=== PATIENT | female | born 1980 | race African-American/Black ===

== ENCOUNTER 2020-04-27 18:22 | Inpatient (IN) | payer MEDICAID ==
[~2020-04-27] VITALS: Ht 175.3 cm; Wt 96.2 kg
[~2020-04-27 18:22] MED LIST: CIPROFLOXACIN500 M2 ORAL; PHENAZOPYRIDIN200 MG ORAL
[2020-04-27 18:55] VITALS: BP 124/72
[2020-04-27] MEDS ORDERED: Omnipaque-300 100ml vial INJ PRN (19:15)
--- NOTE | 2020-04-27 19:15 | Emergency Room Report ---
History of Present Illness General Chief Complaint: Abdominal Pain Source: Patient Present Illness HPI Disclaimer: Please note that this report is being documented using [employer] technology. This can lead to erroneous entry secondary to incorrect interpretation by the dictating instrument. HPI: 39-year-old female presents for evaluation of abdominal distention. Patient had a "tummy tuck" in [facility] 14 days ago and had a drain put in which she states has decreased output. She is complaining of increased abdominal distention. She finished her Keflex and her last heparin shot 4 days ago. Notes nausea but no vomiting. Denies fever. Denies diarrhea. Continues to pass gas. Denies wound dehiscence, purulent drainage, bleeding. 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 EOMI. Cardiovascular: Tachycardic. S1 and S2 normal. No murmur appreciated Resp: Normal work of breathing. No cough, wheezing or crackles appreciated Abdomen: Abdomen is soft, somewhat distended. No focal tenderness but generally tender. No rebound Skin: 50 cm linear surgical scar across the lower pelvis clean dry and intact. Drain in the right lower quadrant with serosanguineous drainage into the reservoir. No bleeding. No dehiscence, no purulent drainage, no significant edema or erythema or warmth. MSK: Normal tone and bulk. Moving all extremities. No obvious deformity. Neuro: Awake and alert. Mentating appropriately. Procedures Critical Care Time Critical Care Time Total critical care time: Approximately 45 minutes Due to a high probability of clinically significant, life threatening deterioration, the patient required the highest level of preparedness to intervene emergently and I personally spent this critical care time directly and personally managing the patient. This critical care time included obtaining a history, examining the patient, pulse oximetry, ordering and reviewing studies, ordering treatments, evaluating response to treatment and updating management plan as needed, frequent reassessment and discussion with other providers as well as arranging for ultimate disposition. This critical to care time was performed to assess and manage the high probability of life-threatening deterioration that could result in multiorgan failure. This critical care time is separate from the separately billable procedures and treating other patients. Medical Decision Making Diagnostic Impression: Primary Impression: Post-op pain Additional Impression: Postoperative anemia ER Course Is a 39-year-old female presenting for evaluation of abdominal pain 14 days postop of tummy tuck procedure performed in [facility]. Patient finished course of antibiotics but concerned the drain is no longer working. Appears to be draining though abdomen does seem somewhat tender. CT shows soft tissue edema from prior surgical changes as well as fluid and gas throughout the subcu fat but no loculated fluid collections, abscess or other abnormalities noted. Patient was found to be anemic and will require transfusion. Admitted to panel physician, Dr. Johnson Laboratory Tests Test 04/27/20 13:05 04/27/20 19:25 Urine Color Yellow Urine Appearance Slightly cloudy Urine pH 5 (4.5-8.0) Urine Specific [place] 1.020 (1.005-1.035) Urine Protein 1+ (NEGATIVE) H Urine Glucose (UA) Negative (NEGATIVE) Urine Ketones Negative (NEGATIVE) Urine Blood 5+ (NEGATIVE) H Urine Nitrite Positive (NEGATIVE) H Urine Bilirubin Negative (NEGATIVE) Urine Urobilinogen Normal MG/DL (0.0-1.0) Urine Leukocyte Esterase 1+ (NEGATIVE) H Urine RBC 10-15 /HPF (0 - 2) H Urine WBC 15-20 /HPF (0 - 2) H Urine Squamous Epithelial Cells Many /LPF (NONE/OCC) H Urine Bacteria Many /HPF (NONE) H Urine HCG, Qualitative Negative (NEGATIVE) White Blood Count 13.3 K/UL (4.8-10.8) H Red Blood Count 2.33 M/UL (4.20-5.40) L Hemoglobin 7.2 G/DL (12.0-16.0) L Hematocrit 21.0 % (37.0-47.0) L Mean Corpuscular Volume 91 FL (80-99) Mean Corpuscular Hemoglobin 30.9 PG (27.0-31.0) Mean Corpuscular Hemoglobin Concent 34.1 G/DL (32.0-36.0) Red Cell Distribution Width 17.9 % (11.6-14.8) H Platelet Count 265 K/UL (150-450) Mean Platelet Volume 5.7 FL (6.5-10.1) L Neutrophils (%) (Auto) % (45.0-75.0) Lymphocytes (%) (Auto) % (20.0-45.0) Monocytes (%) (Auto) % (1.0-10.0) Eosinophils (%) (Auto) % (0.0-3.0) Basophils (%) (Auto) % (0.0-2.0) Differential Total Cells Counted 100 Neutrophils % (Manual) 82 % (45-75) H Lymphocytes % (Manual) 14 % (20-45) L Monocytes % (Manual) 4 % (1-10) Eosinophils % (Manual) 1 % (0-3) Basophils % (Manual) 0 % (0-2) Band Neutrophils 3 % (0-8) Platelet Estimate Adequate Platelet Morphology Normal Hypochromasia 2+ Anisocytosis 2+ Prothrombin Time 11.0 SEC (9.30-11.50) Prothrombin Time INR 1.0 (0.9-1.1) Activated Partial Thromboplast Time 21 SEC (23-33) L Sodium Level 139 MMOL/L (136-145) Potassium Level 4.2 MMOL/L (3.5-5.1) Chloride Level 105 MMOL/L (98-107) Carbon Dioxide Level 28 MMOL/L (21-32) Anion Gap 6 mmol/L (5-15) Blood Urea Nitrogen 10 mg/dL (7-18) Creatinine 1.1 MG/DL (0.55-1.30) Estimated Glomerular Filtration Rate > 60 mL/min (>60) Glucose Level 132 MG/DL (74-106) H Calcium Level 7.7 MG/DL (8.5-10.1) L Total Bilirubin 0.5 MG/DL (0.2-1.0) Aspartate Amino Transferase (AST) 28 U/L (15-37) Alanine Aminotransferase (ALT) 20 U/L (12-78) Alkaline Phosphatase 74 U/L (46-116) Total Protein 5.8 G/DL (6.4-8.2) L Albumin 2.4 G/DL (3.4-5.0) L Globulin 3.4 g/dL Albumin/Globulin Ratio 0.7 (1.0-2.7) L Lipase 86 U/L (73-393) CT/MRI/US Diagnostic Results CT/MRI/US Diagnostic Results : Impression IMPRESSION: Extensive soft tissue findings from recent surgical procedure with multiple superficial drainage catheters. Fluid and gas throughout the subcutaneous fat region abdomen and pelvis. No loculated fluid collections identified. Indeterminate irregular uterine masses. Dictated By: Chintan Delgadillo DO Electronically Signed By:Chintan Delgadillo DO Signed Date/Time 04/27/202158 Last Vital Signs Date Time Temp Pulse Resp B/P (MAP) Pulse Ox O2 Delivery O2 Flow Rate FiO2 04/27/20 18:55 99.3 20 124/72 95 Room Air 04/27/20 18:55 110 Disposition: ADMITTED INPATIENT Condition: Serious Referrals: NOT CHOSEN IPA/,REFERRING (PCP) David Pickett MD Apr 27, 2020 19:15
[2020-04-27 20:08] LABS: HEMOGLOBIN 7.2 G/DL (12.0-16.0); MEAN CORPUSCULAR VOLUME 91 FL (80-99); PLATELET COUNT 265 K/UL (150-450); RED BLOOD COUNT 2.33 M/UL (4.20-5.40); RED CELL DISTRIBUTION WIDTH 17.9 % (11.6-14.8); WHITE BLOOD COUNT 13.3 K/UL (4.8-10.8)
[2020-04-27 20:18] LABS: ANION GAP 6 mmol/L (5-15); BLOOD UREA NITROGEN 10 mg/dL (7-18); CALCIUM 7.7 MG/DL (8.5-10.1); CARBON DIOXIDE 28 MMOL/L (21-32); CHLORIDE 105 MMOL/L (98-107); CREATININE 1.1 MG/DL (0.55-1.30); POTASSIUM 4.2 MMOL/L (3.5-5.1); SODIUM 139 MMOL/L (136-145)
[2020-04-27 20:19] LABS: BILIRUBIN, URINE NEGATIVE (NEGATIVE); GLUCOSE, URINE (UA) NEGATIVE (NEGATIVE); KETONES,URINE NEGATIVE (NEGATIVE); LEUKOCYTE ESTERASE ,URINE 1+ (NEGATIVE); NITRITE,URINE POSITIVE (NEGATIVE); PH,URINE 5 (4.5-8.0); PROTEIN,URINE 1+ (NEGATIVE); UROBILINOGEN,URINE NORMAL MG/DL (0.0-1.0)
[2020-04-27 20:20] LABS: APPEARANCE,URINE SLIGHTLY CLOUDY; COLOR,URINE YELLOW
[2020-04-27 20:23] LABS: ALANINE AMINOTRANSFERASE 20 U/L (12-78); ALBUMIN 2.4 G/DL (3.4-5.0); ALBUMIN/GLOBULIN RATIO 0.7 (1.0-2.7); ALKALINE PHOSPHATASE 74 U/L (46-116); ASPARTATE AMINO TRANSFERASE 28 U/L (15-37); BILIRUBIN,TOTAL 0.5 MG/DL (0.2-1.0)
--- NOTE | 2020-04-27 22:00 | Diagnostic Imaging Report ---
EXAM: CT Abdomen and Pelvis With Intravenous Contrast CLINICAL HISTORY: ABD PAIN TECHNIQUE: Axial computed tomography images of the abdomen and pelvis with intravenous contrast. CTDI is 10.30 mGy and DLP is 550.90 mGy-cm. One or more of the following dose reduction techniques were used: automated exposure control, adjustment of the mA and/or kV according to patient size, use of iterative reconstruction technique. COMPARISON: No relevant prior studies available. FINDINGS: Artifacts: Moderate streak artifact related to spinal rods. Lung bases: Unremarkable. No mass. No consolidation. ABDOMEN: Liver: Unremarkable. No mass. Gallbladder and bile ducts: The gallbladder is contracted. No calcified stones. No ductal dilation. Pancreas: Unremarkable. No mass. No ductal dilation. Spleen: Unremarkable. No splenomegaly. Adrenals: Unremarkable. No mass. Kidneys and ureters: Nonobstructing right intrarenal calculus. Stomach and bowel: Unremarkable. No obstruction. No mucosal thickening. PELVIS: Appendix: No findings to suggest acute appendicitis. Bladder: Unremarkable. No mass. Reproductive: Indeterminate at irregular uterine masses. ABDOMEN and PELVIS: Intraperitoneal space: Unremarkable. No free air. No significant fluid collection. Bones/joints: No acute fracture. No dislocation. Soft tissues: Bilateral subcutaneous drainage catheters in a patient recently status post plastic surgery. Soft tissue gas throughout the subcutaneous fat abdomen and pelvis. Fluid attenuation and most prominent in the dependent portions near the posterior drainage catheters. No loculated fluid collections identified. Vasculature: Unremarkable. No abdominal aortic aneurysm. Lymph nodes: Unremarkable. No enlarged lymph nodes. IMPRESSION: Extensive soft tissue findings from recent surgical procedure with multiple superficial drainage catheters. Fluid and gas throughout the subcutaneous fat region abdomen and pelvis. No loculated fluid collections identified. Indeterminate irregular uterine masses.
[2020-04-27] MEDS ORDERED: cefTRIAXone 1 GM in NS 55 ML IVPB ONE (22:30)
[2020-04-27] MEDS ORDERED: LORazepam Inj 2mg/ml 1ml IV PRN (23:45)
[2020-04-27] MEDS ORDERED: Morphine Sulfate 2mg/ml Inj(IV/IM USE ONLY) IVP PRN (23:45)
[2020-04-28] VITALS (8 sets, daily range): BP systolic 112–138; BP diastolic 70–83
[2020-04-28] MEDS ORDERED: cefTRIAXone 2 GM in NS 55 ML IVPB ONE ×2
[2020-04-28 06:33] LABS: BASOPHILS % (AUTO) 1.2 % (0.0-2.0); EOSINOPHILS % (AUTO) 1.6 % (0.0-3.0); HEMATOCRIT 26.7 % (37.0-47.0); HEMOGLOBIN 8.8 G/DL (12.0-16.0); LYMPHOCYTES % (AUTO) 10.6 % (20.0-45.0); MEAN CORPUSCULAR VOLUME 94 FL (80-99); MONOCYTES % (AUTO) 6.1 % (1.0-10.0); NEUTROPHILS % (AUTO) 80.5 % (45.0-75.0); PLATELET COUNT 313 K/UL (150-450); RED BLOOD COUNT 2.83 M/UL (4.20-5.40); RED CELL DISTRIBUTION WIDTH 15.9 % (11.6-14.8)
[2020-04-28 07:01] LABS: % IRON SATURATION 32 % (15-50); IRON 69 ug/dL (50-175); TOTAL IRON BINDING CAPACITY 218 ug/dL (250-450)
[2020-04-28 07:10] LABS: ALANINE AMINOTRANSFERASE 20 U/L (12-78); ALBUMIN 2.4 G/DL (3.4-5.0); ALBUMIN/GLOBULIN RATIO 0.8 (1.0-2.7); ALKALINE PHOSPHATASE 68 U/L (46-116); ANION GAP 4 mmol/L (5-15); ASPARTATE AMINO TRANSFERASE 17 U/L (15-37); BILIRUBIN,TOTAL 0.9 MG/DL (0.2-1.0); BLOOD UREA NITROGEN 8 mg/dL (7-18); CALCIUM 7.7 MG/DL (8.5-10.1); CARBON DIOXIDE 27 MMOL/L (21-32); CHLORIDE 108 MMOL/L (98-107); CREATININE 0.9 MG/DL (0.55-1.30); POTASSIUM 3.7 MMOL/L (3.5-5.1); SODIUM 139 MMOL/L (136-145)
--- NOTE | 2020-04-28 08:05 | History & Physical ---
History and Physical History & Physicial Seen and examined. Full Dictation completed. Rochelle Johnson MD Apr 28, 2020 08:05
--- NOTE | 2020-04-28 08:06 | General Progress Note ---
Subjective Allergies: Coded Allergies: No Known Allergies (Unverified , 12/03/19) Objective Last 24 Hour Vital Signs Date Time Temp Pulse Resp B/P (MAP) Pulse Ox O2 Delivery O2 Flow Rate FiO2 04/28/20 06:22 99.0 100 18 122/78 100 Room Air 04/28/20 03:20 98.8 98 18 136/81 100 Room Air 04/28/20 00:15 99.0 105 18 138/83 100 Room Air 04/27/20 18:55 99.3 20 124/72 95 Room Air 04/27/20 18:55 110 20 Room Air 04/27/20 18:26 99.3 110 20 124/72 (89) 95 Room Air Intake and Output 04/27/20 04/28/20 19:00 07:00 Intake Total 55 ml Balance 55 ml Intake IV Total 55 ml Laboratory Tests 04/27/20 13:05: Urine Color Yellow, Urine Appearance Slightly cloudy, Urine pH 5, Urine Specific [place] 1.020, Urine Protein 1+H, Urine Glucose (UA) Negative, Urine Ketones Negative, Urine Blood 5+H, Urine Nitrite PositiveH, Urine Bilirubin Negative, Urine Urobilinogen Normal, Urine Leukocyte Esterase 1+H, Urine RBC 10-15H, Urine WBC 15-20H, Urine Squamous Epithelial Cells ManyH, Urine Bacteria ManyH, Urine HCG, Qualitative Negative 04/27/20 19:25: White Blood Count 13.3H, Red Blood Count 2.33L, Hemoglobin 7.2L, Hematocrit 21.0L, Mean Corpuscular Volume 91, Mean Corpuscular Hemoglobin 30.9, Mean Corpuscular Hemoglobin Concent 34.1, Red Cell Distribution Width 17.9H, Platelet Count 265, Mean Platelet Volume 5.7L, Neutrophils (%) (Auto) , Lymphocytes (%) (Auto) , Monocytes (%) (Auto) , Eosinophils (%) (Auto) , Basophils (%) (Auto) , Differential Total Cells Counted 100, Neutrophils % (Manual) 82H, Lymphocytes % (Manual) 14L, Monocytes % (Manual) 4, Eosinophils % (Manual) 1, Basophils % (Manual) 0, Band Neutrophils 3, Platelet Estimate Adequate, Platelet Morphology Normal, Hypochromasia 2+, Anisocytosis 2+, Prothrombin Time 11.0, Prothromb Time International Ratio 1.0, Activated Partial Thromboplast Time 21L, Sodium Level 139, Potassium Level 4.2, Chloride Level 105, Carbon Dioxide Level 28, Anion Gap 6, Blood Urea Nitrogen 10, Creatinine 1.1, Estimat Glomerular Filtration Rate > 60, Glucose Level 132H, Calcium Level 7.7L, Total Bilirubin 0.5, Aspartate Amino Transf (AST/SGOT) 28, Alanine Aminotransferase (ALT/SGPT) 20, Alkaline Phosphatase 74, Total Protein 5.8L, Albumin 2.4L, Globulin 3.4, Albumin/Globulin Ratio 0.7L, Lipase 86 04/28/20 05:35: White Blood Count 13.0H, Red Blood Count 2.83L, Hemoglobin 8.8L, Hematocrit 26.7L, Mean Corpuscular Volume 94, Mean Corpuscular Hemoglobin 31.3H, Mean Corpuscular Hemoglobin Concent 33.1, Red Cell Distribution Width 15.9H, Platelet Count 313, Mean Platelet Volume 5.4L, Neutrophils (%) (Auto) 80.5H, Lymphocytes (%) (Auto) 10.6L, Monocytes (%) (Auto) 6.1, Eosinophils (%) (Auto) 1.6, Basophils (%) (Auto) 1.2, Sodium Level 139, Potassium Level 3.7, Chloride Level 108H, Carbon Dioxide Level 27, Anion Gap 4L, Blood Urea Nitrogen 8, Creatinine 0.9, Estimat Glomerular Filtration Rate > 60, Glucose Level 104, Calcium Level 7.7L, Total Bilirubin 0.9, Aspartate Amino Transf (AST/SGOT) 17, Alanine Aminotransferase (ALT/SGPT) 20, Alkaline Phosphatase 68, Total Protein 5.6L, Albumin 2.4L, Globulin 3.2, Albumin/Globulin Ratio 0.8L, Hemoglobin A1c 5.7, Iron Level 69, Total Iron Binding Capacity 218L, Percent Iron Saturation 32, Unsaturated Iron Binding 149, Thyroid Stimulating Hormone (TSH) 1.584 Height (Feet): 5 Height (Inches): 9.00 Weight (Pounds): 212 Assessment/Plan Assessment/Plan: Dictation in progress A/P: 1- Sepsis 2- Acute Anemia Plan: current antibiotic regiment ID, Surgery services are consulted Rochelle Johnson MD Apr 28, 2020 08:06
[2020-04-28] MEDS: Enoxaparin 40mg Inj SUBQ SCH (09:19)
[2020-04-28] MEDS ORDERED: Piperacillin/Tazobactam 3.375 GM in NS 110 ML IVPB ONE (11:00)
[2020-04-28] MEDS ORDERED: Vancomycin 1.5gm x1 (Pts>70kg) IVPB SCH (11:15)
--- NOTE | 2020-04-28 12:30 | Consultation ---
History of Present Illness General Date patient seen: Apr 28, 2020 Reason for Hospitalization: Abdominal Pain Present Illness HPI This is a very pleasant 39-year-old female presents for evaluation of abdominal distention and fluid retention for the past few days. States that she had a "tummy tuck" in [facility] 14 days ago and had a drain put in which she states has decreased output. She is complaining of increased abdominal distention. She finished her Keflex and her last heparin shot 4 days ago. Notes nausea but no vomiting. Denies fever. Denies diarrhea. Continues to pass gas. Denies wound dehiscence, purulent drainage, bleeding. Surgery called to evaluate assist with care. Patient seen, [place], chart reviewed. 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 Came in for evaluation. Imaging reviewed Allergies: Coded Allergies: No Known Allergies (Unverified , 12/03/19) COVID-19 Screening Contact w/high risk pt: No Experienced COVID-19 symptoms?: No Coronavirus symptoms experienc: Nausea/Vomiting Medication History Discontinued Medications Ciprofloxacin Hcl* (Ciprofloxacin Hcl*), 500 MG ORAL Q12H Discontinued Reason: Therapy completed Phenazopyridine Hcl* (Pyridium*), 200 MG ORAL THREE TIMES A DAY Discontinued Reason: Therapy completed Patient History History Provided By: Patient Healthcare decision maker Resuscitation status Advanced Directive on File Past Medical/Surgical History Past Medical/Surgical History: (1) Abdominal pain (2) Post-op pain (3) Postoperative anemia Review of Systems Review of Symptoms General ROS: no weight loss or fever Psychological ROS: no depression or mood changes, no memory loss Ophthalmic ROS: no visual changes or eye irritation ENT ROS: no nasal congestion, hearing loss, dizziness Allergy and Immunology ROS: no allergic symptoms or urticaria Hematological and Lymphatic ROS: no swollen glands, unusual bleeding or bruising Endocrine ROS: no polyuria, polydipsia, weight changes, temperature intolerance Respiratory ROS: no cough, shortness of breath, or wheezing Cardiovascular ROS: no chest pain or dyspnea on exertion Gastrointestinal ROS: denies abdominal pain, bright red blood in stool. Musculoskeletal ROS: no myalgias or arthralgias Neurological ROS: no TIA or stroke symptoms Dermatological ROS: no new or changing skin lesions, rashes or pruritis Physical Exam Physical Exam General appearance: alert, cooperative, no distress, appears stated age Head: Normocephalic, without obvious abnormality, atraumatic Eyes: conjunctivae/corneas clear. PERRL, EOM's intact. Fundi benign Throat: Lips, mucosa, and tongue normal. Teeth and gums normal Neck: supple, symmetrical, trachea midline, no adenopathy, thyroid: not enlarged, symmetric, no tenderness/mass/nodules, no carotid bruit and no JVD Lungs: clear to auscultation bilaterally Heart: regular rate and rhythm, S1, S2 normal, no murmur, click, rub or gallop Abdomen: soft, non-tender. Bowel sounds normal. No masses, no organomegaly right lower quadrant Hemovac drain serous drainage anasarca abdominoplasty incision clean dry intact Extremities: extremities normal, atraumatic, no cyanosis or edema Pulses: 2+ and symmetric Skin: Skin color, texture, turgor normal. No rashes or lesions Neurologic: Grossly normal Last 24 Hour Vital Signs Date Time Temp Pulse Resp B/P (MAP) Pulse Ox O2 Delivery O2 Flow Rate FiO2 04/28/20 09:00 99.0 99 17 127/75 98 Room Air 04/28/20 06:22 99.0 100 18 122/78 100 Room Air 04/28/20 03:20 98.8 98 18 136/81 100 Room Air 04/28/20 00:15 99.0 105 18 138/83 100 Room Air 04/27/20 18:55 99.3 20 124/72 95 Room Air 04/27/20 18:55 110 20 Room Air 04/27/20 18:26 99.3 110 20 124/72 (89) 95 Room Air Intake and Output 04/27/20 04/28/20 19:00 07:00 Intake Total 55 ml Balance 55 ml Intake IV Total 55 ml Laboratory Tests Test 04/27/20 13:05 04/27/20 19:25 04/28/20 05:35 Urine Color Yellow Urine Appearance Slightly cloudy Urine pH 5 (4.5-8.0) Urine Specific [place] 1.020 (1.005-1.035) Urine Protein 1+ (NEGATIVE) H Urine Glucose (UA) Negative (NEGATIVE) Urine Ketones Negative (NEGATIVE) Urine Blood 5+ (NEGATIVE) H Urine Nitrite Positive (NEGATIVE) H Urine Bilirubin Negative (NEGATIVE) Urine Urobilinogen Normal MG/DL (0.0-1.0) Urine Leukocyte Esterase 1+ (NEGATIVE) H Urine RBC 10-15 /HPF (0 - 2) H Urine WBC 15-20 /HPF (0 - 2) H Urine Squamous Epithelial Cells Many /LPF (NONE/OCC) H Urine Bacteria Many /HPF (NONE) H Urine HCG, Qualitative Negative (NEGATIVE) White Blood Count 13.3 K/UL (4.8-10.8) H 13.0 K/UL (4.8-10.8) H Red Blood Count 2.33 M/UL (4.20-5.40) L 2.83 M/UL (4.20-5.40) L Hemoglobin 7.2 G/DL (12.0-16.0) L 8.8 G/DL (12.0-16.0) L Hematocrit 21.0 % (37.0-47.0) L 26.7 % (37.0-47.0) L Mean Corpuscular Volume 91 FL (80-99) 94 FL (80-99) Mean Corpuscular Hemoglobin 30.9 PG (27.0-31.0) 31.3 PG (27.0-31.0) H Mean Corpuscular Hemoglobin Concent 34.1 G/DL (32.0-36.0) 33.1 G/DL (32.0-36.0) Red Cell Distribution Width 17.9 % (11.6-14.8) H 15.9 % (11.6-14.8) H Platelet Count 265 K/UL (150-450) 313 K/UL (150-450) Mean Platelet Volume 5.7 FL (6.5-10.1) L 5.4 FL (6.5-10.1) L Neutrophils (%) (Auto) % (45.0-75.0) 80.5 % (45.0-75.0) H Lymphocytes (%) (Auto) % (20.0-45.0) 10.6 % (20.0-45.0) L Monocytes (%) (Auto) % (1.0-10.0) 6.1 % (1.0-10.0) Eosinophils (%) (Auto) % (0.0-3.0) 1.6 % (0.0-3.0) Basophils (%) (Auto) % (0.0-2.0) 1.2 % (0.0-2.0) Differential Total Cells Counted 100 Neutrophils % (Manual) 82 % (45-75) H Lymphocytes % (Manual) 14 % (20-45) L Monocytes % (Manual) 4 % (1-10) Eosinophils % (Manual) 1 % (0-3) Basophils % (Manual) 0 % (0-2) Band Neutrophils 3 % (0-8) Platelet Estimate Adequate Platelet Morphology Normal Hypochromasia 2+ Anisocytosis 2+ Prothrombin Time 11.0 SEC (9.30-11.50) Prothromb Time International Ratio 1.0 (0.9-1.1) Activated Partial Thromboplast Time 21 SEC (23-33) L Sodium Level 139 MMOL/L (136-145) 139 MMOL/L (136-145) Potassium Level 4.2 MMOL/L (3.5-5.1) 3.7 MMOL/L (3.5-5.1) Chloride Level 105 MMOL/L (98-107) 108 MMOL/L (98-107) H Carbon Dioxide Level 28 MMOL/L (21-32) 27 MMOL/L (21-32) Anion Gap 6 mmol/L (5-15) 4 mmol/L (5-15) L Blood Urea Nitrogen 10 mg/dL (7-18) 8 mg/dL (7-18) Creatinine 1.1 MG/DL (0.55-1.30) 0.9 MG/DL (0.55-1.30) Estimat Glomerular Filtration Rate > 60 mL/min (>60) > 60 mL/min (>60) Glucose Level 132 MG/DL (74-106) H 104 MG/DL (74-106) Calcium Level 7.7 MG/DL (8.5-10.1) L 7.7 MG/DL (8.5-10.1) L Total Bilirubin 0.5 MG/DL (0.2-1.0) 0.9 MG/DL (0.2-1.0) Aspartate Amino Transf (AST/SGOT) 28 U/L (15-37) 17 U/L (15-37) Alanine Aminotransferase (ALT/SGPT) 20 U/L (12-78) 20 U/L (12-78) Alkaline Phosphatase 74 U/L (46-116) 68 U/L (46-116) Total Protein 5.8 G/DL (6.4-8.2) L 5.6 G/DL (6.4-8.2) L Albumin 2.4 G/DL (3.4-5.0) L 2.4 G/DL (3.4-5.0) L Globulin 3.4 g/dL 3.2 g/dL Albumin/Globulin Ratio 0.7 (1.0-2.7) L 0.8 (1.0-2.7) L Lipase 86 U/L (73-393) Hemoglobin A1c 5.7 % (4.3-6.0) Iron Level 69 ug/dL (50-175) Total Iron Binding Capacity 218 ug/dL (250-450) L Percent Iron Saturation 32 % (15-50) Unsaturated Iron Binding 149 ug/dL (112-346) Thyroid Stimulating Hormone (TSH) 1.584 uiU/mL (0.358-3.740) Microbiology Date/Time Source Procedure Growth Status 04/28/20 10:30 Nasopharynx SARS-CoV-2 RdRp Gene Assay - Final Complete Height (Feet): 5 Height (Inches): 9.00 Weight (Pounds): 212 Medications Current Medications Medications (Trade) Dose Ordered Sig/Tiffani Route PRN Reason Start Time Stop Time Status Last Admin Dose Admin Acetaminophen (Tylenol) 650 mg Q4H PRN ORAL Temp >100.5 04/27/20 23:45 05/27/20 23:44 Dextrose (Dextrose 50%) 25 ml Q30M PRN IV Hypoglycemia 04/27/20 23:45 07/26/20 23:44 Dextrose (Dextrose 50%) 50 ml Q30M PRN IV Hypoglycemia 04/27/20 23:45 07/26/20 23:44 Enoxaparin Sodium (Lovenox) 40 mg Q24H SUBQ 04/28/20 00:45 07/27/20 00:44 04/28/20 09:19 Iohexol (OMNIPAQUE-300 100ml) 100 ml NOW PRN INJ Radiology Procedure 04/27/20 19:15 04/29/20 19:14 Lorazepam (Ativan 2mg/ml 1ml) 0.5 mg Q4H PRN IV For Anxiety 04/27/20 23:45 05/04/20 23:44 Morphine Sulfate (Morphine Sulfate) 2 mg TID PRN IVP Moderate Pain (Pain Scale 4-6) 04/27/20 23:45 05/04/20 23:44 Ondansetron HCl (Zofran) 4 mg Q6H PRN IVP Nausea & Vomiting 04/27/20 23:45 05/27/20 23:44 Pantoprazole (Protonix) 40 mg DAILY ORAL 04/28/20 09:00 05/28/20 08:59 04/28/20 09:17 Vancomycin HCl (Vanco pharmacy to dose) 1 ea DAILY PRN MISC Per rx protocol 04/28/20 10:15 05/28/20 10:14 Zolpidem Tartrate (Ambien) 5 mg HSPRN PRN ORAL Insomnia 04/27/20 23:45 05/04/20 23:44 Assessment/Plan Problem List: (1) Post-op pain ICD Codes: G89.18 - Other acute postprocedural pain SNOMED: 660149624 (2) Postoperative anemia ICD Codes: D64.9 - Anemia, unspecified SNOMED: 132890736, [id number] (3) Abdominal pain Assessment & Plan: 39-year-old female recent abdominal plasty began to have fluid retention anasarca presented for evaluation complaining of abdominal pain. States she wants fluid removed. CT noted identified no fluid collections noted diffuse anasarca identified leukocytosis drain output minimal drain in place wound clean dry intact. No acute surgical intervention at this time. Wound does not look infected. Patient likely third spacing will need monitoring. Wound currently in tact but if continues to have worsening anasarca may have dehiscence. Drain evaluated and functional. No acute surgical invention at this time. Patient to follow-up with her surgeon once discharged. Will follow while in-house and monitor. Thank you for allowing me to participate patient's care. okay for diet pain control incentive spirometry activity as tolerated ?lasix am labs drain care ABDOMEN: Liver: Unremarkable. No mass. Gallbladder and bile ducts: The gallbladder is contracted. No calcified stones. No ductal dilation. Pancreas: Unremarkable. No mass. No ductal dilation. Spleen: Unremarkable. No splenomegaly. Adrenals: Unremarkable. No mass. Kidneys and ureters: Nonobstructing right intrarenal calculus. Stomach and bowel: Unremarkable. No obstruction. No mucosal thickening. PELVIS: Appendix: No findings to suggest acute appendicitis. Bladder: Unremarkable. No mass. Reproductive: Indeterminate at irregular uterine masses. ABDOMEN and PELVIS: Intraperitoneal space: Unremarkable. No free air. No significant fluid collection. Bones/joints: No acute fracture. No dislocation. Soft tissues: Bilateral subcutaneous drainage catheters in a patient recently status post plastic surgery. Soft tissue gas throughout the subcutaneous fat abdomen and pelvis. Fluid attenuation and most prominent in the dependent portions near the posterior drainage catheters. No loculated fluid collections identified. Vasculature: Unremarkable. No abdominal aortic aneurysm. Lymph nodes: Unremarkable. No enlarged lymph nodes. IMPRESSION: Extensive soft tissue findings from recent surgical procedure with multiple superficial drainage catheters. Fluid and gas throughout the subcutaneous fat region abdomen and pelvis. No loculated fluid collections identified. Indeterminate irregular uterine masses. ICD Codes: R10.9 - Unspecified abdominal pain SNOMED: [id number] Anthony Koch Apr 28, 2020 12:29
--- NOTE | 2020-04-28 15:45 | History and Physical Report ---
DATE OF ADMISSION: 04/27/2020 HISTORY OF PRESENT ILLNESS: Patient is a 39-year-old female, status post tummy tuck out of the state. Patient is here for dizziness, weakness day #14 after the procedure. At the time of evaluation, patient denies chest pain or shortness of breath. Denies nausea or vomitus. Denies abnormal bleeding. Denies any pain in the legs. REVIEW OF SYSTEMS: All 12 elements of review of systems reviewed. Pertinent positive and negative as above. ALLERGIES: NKDA. FAMILY HISTORY: Reviewed noncontributory. PAST MEDICAL AND SURGICAL HISTORY: Including but not limited to obesity. CURRENT HOSPITAL MEDICATIONS: Including ceftriaxone, Lovenox, lorazepam, Protonix. PHYSICAL EXAMINATION: VITAL SIGNS: Blood pressure 130/80, temperature 98.2, pulse oximetry 98% on room air, respiratory rate 18, pulse rate 110. HEAD AND NECK: Atraumatic and normocephalic. CHEST: Clear to auscultation. HEART: S1, S2. Regular rate and rhythm. ABDOMEN: Postoperative changes on the abdomen is noted. MUSCULOSKELETAL: No gross lateralized motor deficit. NEUROLOGY: Awake, alert, oriented x3. CT scan of the abdomen dated 04/27/2020 reviewed, shows postsurgical changes in the abdomen area, otherwise unremarkable. LABORATORY DATA: Labs dated 04/27/2020 reviewed, shows WBC 13.3, hemoglobin of 7.2, platelet counts of 265. Sodium 139, potassium 4.2, creatinine 1.1. Iron saturation 32. ASSESSMENT AND PLAN: 1. Sepsis. 2. Cellulitis/wound infection in the abdominal area. 3. Post tummy tuck and postsurgical changes noted. 4. Acute anemia. 5. GI and DVT prophylaxes. 6. UTI. PLAN OF CARE: Start patient on empiric antibiotic treatment. We will proceed with blood transfusion. Time of this dictation does not reflect the actual time of encounter of 04/27/2020. Rochelle Johnson M.D. DR: AHMET JOB#: [id number] CC:
--- NOTE | 2020-04-28 19:45 | Consultation ---
DATE OF CONSULTATION: 04/28/2020 GASTROENTEROLOGY CONSULTATION CONSULTING PHYSICIAN: Gaby Elam MD CHIEF COMPLAINT: I was asked to see this patient for evaluation of postoperative complications. HISTORY OF PRESENT ILLNESS: The patient is a 39-year-old woman, who went to [place] for an abdominoplasty operation, which she had 10 days ago. She says that she was advised to stay there for 21 days postoperatively, but she left against advice and came to [place] with her drain in place planning to have her primary physician pull it. She now came to the emergency room because of abdominal pain in the pelvic area for few days as well as some abdominal distention. She finished antibiotics a few days ago. 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 PAST MEDICAL HISTORY: Otherwise unremarkable. MEDICATIONS: As an outpatient, none. PAST SURGICAL HISTORY: Status post scoliosis surgery as a teenager. FAMILY HISTORY: Noncontributory and negative. SOCIAL HISTORY: Patient is . She has 2 children. She does not smoke or drink alcohol. ALLERGIES: None. REVIEW OF SYSTEMS: Otherwise negative. PHYSICAL EXAMINATION: GENERAL: A well-developed, well-nourished woman, seen in the emergency room. HEENT: Normocephalic and atraumatic. Sclerae anicteric. NECK: Supple. CHEST: Clear to auscultation. CARDIOVASCULAR: Revealed a regular rate. ABDOMEN: Soft with a Lebron-Posada type drain in the right lower quadrant area. There is a well-healing transverse incision typical for abdominoplasty. There was some generalized lower abdominal induration in the skin and abdominal distention, but no obvious fluctuance was identified. EXTREMITIES: Revealed no edema. LABORATORY DATA: Notable for white count, which is elevated at 13 and the hemoglobin was down at above 7.2 and the subsequent one 8.8. ASSESSMENT: This patient presents with pelvic pain in the postoperative setting for abdominoplasty. The surgical consultation was noted. The patient will be followed by the surgical team. The patient to be admitted to the hospital and I agree the diet can be continued. However, I will defer the surgical staff regarding the management of the wound and changes seen on the CT scan. Antibiotics would be advisable. Patient's blood count should be followed and transfused as necessary to keep the hemoglobin above 7.0. RECOMMENDATIONS: Per above discussion and per orders written in the chart. The patient was seen in the emergency room, but I will follow her with you. Thank you for asking me to participate in the care of this patient. Gbay Elam M.D. DR: EMANI JOB#: [id number] CC: LEN
[2020-04-28] MEDS: Piperacillin/Tazobactam 3.375 GM in NS 110 ML IVPB SCH (22:56)
[2020-04-28] MEDS: Zolpidem 5mg tab ORAL PRN (23:14)
[2020-04-29] VITALS: BP 138/78
[2020-04-29] MEDS ORDERED: cefTRIAXone 2 GM in NS 55 ML IVPB SCH ×2
[2020-04-29] MEDS: Enoxaparin 40mg Inj SUBQ SCH (01:35)
[2020-04-29] MEDS: Vancomycin 1gm in Dextrose 275ml IVPB SCH ×2 (03:08→13:27)
[2020-04-29 04:00] VITALS: BP 136/82
[2020-04-29 08:00] VITALS: BP 124/82
[2020-04-29] MEDS: Piperacillin/Tazobactam 3.375 GM in NS 110 ML IVPB SCH ×3 (08:46→23:23)
--- NOTE | 2020-04-29 09:53 | General Progress Note ---
Subjective ROS Limited/Unobtainable: Yes Allergies: Coded Allergies: No Known Allergies (Unverified , 12/03/19) Objective Last 24 Hour Vital Signs Date Time Temp Pulse Resp B/P (MAP) Pulse Ox O2 Delivery O2 Flow Rate FiO2 04/29/20 08:00 98.8 102 18 124/82 (96) 97 102 04/29/20 04:00 98.5 102 18 136/82 (100) 96 102 04/29/20 00:00 99.1 91 16 138/78 (98) 94 91 04/28/20 21:00 Room Air 04/28/20 20:00 98.4 95 18 112/70 (84) 95 95 04/28/20 17:50 Room Air 04/28/20 16:50 98.2 73 18 132/76 99 Room Air 04/28/20 16:30 99.0 93 18 116/78 97 Room Air 82 04/28/20 13:40 99.0 88 19 120/72 100 Room Air 04/28/20 11:30 99.0 94 16 125/79 99 Room Air Height (Feet): 5 Height (Inches): 9.00 Weight (Pounds): 212 General Appearance: no apparent distress EENT: normal ENT inspection Neck: supple Cardiovascular: normal rate Respiratory/Chest: decreased breath sounds Abdomen: soft, hypoactive bowel sounds Extremities: non-tender Assessment/Plan Assessment/Plan: Anemia recent abd surg fu H&H abx pain control wound care fu surg iveths Mason Brown MD Apr 29, 2020 09:53
--- NOTE | 2020-04-29 11:52 | General Progress Note ---
Subjective Allergies: Coded Allergies: No Known Allergies (Unverified , 12/03/19) Objective Last 24 Hour Vital Signs Date Time Temp Pulse Resp B/P (MAP) Pulse Ox O2 Delivery O2 Flow Rate FiO2 04/29/20 08:00 98.8 102 18 124/82 (96) 97 102 04/29/20 04:00 98.5 102 18 136/82 (100) 96 102 04/29/20 00:00 99.1 91 16 138/78 (98) 94 91 04/28/20 21:00 Room Air 04/28/20 20:00 98.4 95 18 112/70 (84) 95 95 04/28/20 17:50 Room Air 04/28/20 16:50 98.2 73 18 132/76 99 Room Air 04/28/20 16:30 99.0 93 18 116/78 97 Room Air 82 04/28/20 13:40 99.0 88 19 120/72 100 Room Air Height (Feet): 5 Height (Inches): 9.00 Weight (Pounds): 212 Assessment/Plan Status: stable Assessment/Plan: S, O: I am ok, denies pain or sob PHYSICAL EXAMINATION:HEAD AND NECK: Atraumatic and normocephalic.CHEST: Clear to auscultation. HEART: S1, S2. Regular rate and rhythm.ABDOMEN: Postoperative changes on the abdomen is noted. MUSCULOSKELETAL: No gross lateralized motor deficit. NEUROLOGY: Awake, alert, oriented x3. MEds: reviewed and reconciled ASSESSMENT AND PLAN: 1. Sepsis. 2. Cellulitis/wound infection in the abdominal area. 3. Post tummy tuck and postsurgical changes noted. 4. Acute anemia. 5. GI and DVT prophylaxes. 6. UTI. PLAN OF CARE: Pending cultures current abx notes from ID reviewed Rochelle Johnson MD Apr 29, 2020 11:52
[2020-04-29 12:00] VITALS: BP 135/72
--- NOTE | 2020-04-29 15:09 | Consultation ---
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 patient said that she had a "tummy tuck" in [facility] 14 days ago and had a drain put in which she states has decreased output. She is complaining of increased abdominal distention. She finished her Keflex and her last heparin shot 4 days ago. she developed nausea but no vomiting. Denies any fever or chills. Denies diarrhea. Continues to pass gas. Denies wound dehiscence, purulent drainage, or bleeding. her workup in the emergency room showed evidence of urine tract infection, and her CT scan of the abdomen and pelvis showed subcutaneous gas with draining but no evidence of loculated fluid or abscess so infectious disease consultation was requested for antibiotics treatment and further care . 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 Allergies: Coded Allergies: No Known Allergies (Unverified , 12/03/19) Medication History Discontinued Medications Ciprofloxacin Hcl* (Ciprofloxacin Hcl*), 500 MG ORAL Q12H Discontinued Reason: Therapy completed Phenazopyridine Hcl* (Pyridium*), 200 MG ORAL THREE TIMES A DAY Discontinued Reason: Therapy completed Patient History Healthcare decision maker Resuscitation status Advanced Directive on File Past Medical/Surgical History Past Medical/Surgical History: (1) Obesity (2) Postoperative anemia (3) Abdominal pain Review of Systems Constitutional: Reports: no symptoms Eye: Reports: no symptoms ENT: Reports: no symptoms Respiratory: Reports: no symptoms Cardiovascular: Reports: no symptoms Gastrointestinal: Reports: abdominal pain, nausea, other - Distention Genitourinary: Reports: no symptoms Musculoskeletal: Reports: no symptoms Skin: Reports: no symptoms Psychiatric: Reports: no symptoms Neurological: Reports: no symptoms Endocrine: Reports: no symptoms Hematologic/Lymphatic: Reports: anemia Physical Exam General Appearance: WD/WN, no apparent distress, alert Lines, tubes and drains: peripheral HEENT: normocephalic, atraumatic, anicteric, mucous membranes moist, PERRL Neck: non-tender, normal alignment, supple, normal inspection Respiratory/Chest: chest wall non-tender, lungs clear, normal breath sounds, no respiratory distress, no accessory muscle use Cardiovascular/Chest: normal peripheral pulses, normal rate, regular rhythm, no gallop/murmur, no JVD Abdomen: normal bowel sounds, non tender, soft, no mass, hyperactive bowel sounds, distended, other - Surgical drain in place Genitourinary/Rectal: normal genital exam Extremities: normal range of motion, non-tender, normal inspection Skin Exam: normal pigmentation, warm/dry 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, alert, 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 Musculoskeletal: normal muscle bulk, no effusion Last 24 Hour Vital Signs Date Time Temp Pulse Resp B/P (MAP) Pulse Ox O2 Delivery O2 Flow Rate FiO2 04/29/20 12:00 99.2 107 18 135/72 (93) 97 04/29/20 08:00 98.8 102 18 124/82 (96) 97 102 04/29/20 04:00 98.5 102 18 136/82 (100) 96 102 04/29/20 00:00 99.1 91 16 138/78 (98) 94 91 04/28/20 21:00 Room Air 04/28/20 20:00 98.4 95 18 112/70 (84) 95 95 04/28/20 17:50 Room Air 04/28/20 16:50 98.2 73 18 132/76 99 Room Air 04/28/20 16:30 99.0 93 18 116/78 97 Room Air 82 Height (Feet): 5 Height (Inches): 9.00 Weight (Pounds): 212 Medications Current Medications Medications (Trade) Dose Ordered Sig/Tiffani Route PRN Reason Start Time Stop Time Status Last Admin Dose Admin Acetaminophen (Tylenol) 650 mg Q4H PRN ORAL Temp >100.5 04/27/20 23:45 05/27/20 23:44 Dextrose (Dextrose 50%) 25 ml Q30M PRN IV Hypoglycemia 04/27/20 23:45 07/26/20 23:44 Dextrose (Dextrose 50%) 50 ml Q30M PRN IV Hypoglycemia 04/27/20 23:45 07/26/20 23:44 Enoxaparin Sodium (Lovenox) 40 mg Q24H SUBQ 04/28/20 00:45 07/27/20 00:44 04/29/20 01:35 Iohexol (OMNIPAQUE-300 100ml) 100 ml NOW PRN INJ Radiology Procedure 04/27/20 19:15 04/29/20 19:14 Lorazepam (Ativan 2mg/ml 1ml) 0.5 mg Q4H PRN IV For Anxiety 04/27/20 23:45 05/04/20 23:44 Morphine Sulfate (Morphine Sulfate) 2 mg TID PRN IVP Moderate Pain (Pain Scale 4-6) 04/27/20 23:45 05/04/20 23:44 Ondansetron HCl (Zofran) 4 mg Q6H PRN IVP Nausea & Vomiting 04/27/20 23:45 05/27/20 23:44 Pantoprazole (Protonix) 40 mg DAILY ORAL 04/28/20 09:00 05/28/20 08:59 04/29/20 08:46 Piperacillin Sod/ Tazobactam Sod 3.375 gm/Sodium Chloride 110 ml @ 27.5 mls/hr EVERY 8 HOURS IVPB 04/28/20 22:00 05/03/20 21:59 04/29/20 08:46 Vancomycin HCl (Vanco pharmacy to dose) 1 ea DAILY PRN MISC Per rx protocol 04/28/20 10:15 05/28/20 10:14 Vancomycin HCl 1 gm/Dextrose 275 ml @ 183.708 mls/hr Q8H IVPB 04/29/20 02:00 05/04/20 01:59 04/29/20 13:27 Zolpidem Tartrate (Ambien) 5 mg HSPRN PRN ORAL Insomnia 04/27/20 23:45 05/04/20 23:44 04/28/20 23:14 Assessment/Plan Problem List: (1) Status post abdominoplasty Assessment & Plan: with no sign of infection or wound dehiscence and CT scan is not showing any loculated fluid or abscess will start patient on Vanco and Zosyn empiric coverage and send blood culture, general surgery is following ICD Codes: Z98.890 - Other specified postprocedural states SNOMED: 322479827, 389641565 (2) UTI (urinary tract infection) Assessment & Plan: already on Zosyn pending culture ICD Codes: N39.0 - Urinary tract infection, site not specified SNOMED: 53680991 (3) Postoperative anemia Assessment & Plan: suspect due to surgery status post blood transfusion monitor for any sign of bleeding ICD Codes: D64.9 - Anemia, unspecified SNOMED: 470599838, [id number] Kerwin Fish M.D. Apr 29, 2020 15:09
[2020-04-29 16:00] VITALS: BP 121/70
--- NOTE | 2020-04-29 17:36 | Surgery Progress Note ---
Surgery Progress Note Subjective Symptoms: improved, tolerating diet, voiding well, passing flatus, pain decreased Objective Last 24 Hour Vital Signs Date Time Temp Pulse Resp B/P (MAP) Pulse Ox O2 Delivery O2 Flow Rate FiO2 04/29/20 16:00 98.7 104 18 121/70 (87) 97 04/29/20 12:00 99.2 107 18 135/72 (93) 97 04/29/20 09:00 Room Air 04/29/20 08:00 98.8 102 18 124/82 (96) 97 102 04/29/20 04:00 98.5 102 18 136/82 (100) 96 102 04/29/20 00:00 99.1 91 16 138/78 (98) 94 91 04/28/20 21:00 Room Air 04/28/20 20:00 98.4 95 18 112/70 (84) 95 95 04/28/20 17:50 Room Air Dressing: saturated Drains: hemovac Cardiovascular: RSR Respiratory: clear Abdomen: soft, distended, non-tender, present bowel sounds Extremities: edema, no tenderness, no cyanosis Laboratory Tests Test 04/29/20 17:10 Vancomycin Level Trough Pending Plan Problems: (1) Post-op pain (2) Postoperative anemia (3) Abdominal pain Assessment & Plan: 39-year-old female recent abdominal plasty began to have fluid retention anasarca presented for evaluation complaining of abdominal pain. States she wants fluid removed. CT noted identified no fluid collections noted diffuse anasarca identified leukocytosis drain output minimal drain in place wound clean dry intact. No acute surgical intervention at this time. Wound does not look infected. Patient likely third spacing will need monitoring. Wound currently in tact but if continues to have worsening anasarca may have dehiscence. Drain evaluated and functional. No acute surgical invention at this time. Patient to follow-up with her surgeon once discharged. Will follow while in-house and monitor. Thank you for allowing me to participate patient's care. okay for diet pain control incentive spirometry activity as tolerated ?lasix am labs drain care ABDOMEN: Liver: Unremarkable. No mass. Gallbladder and bile ducts: The gallbladder is contracted. No calcified stones. No ductal dilation. Pancreas: Unremarkable. No mass. No ductal dilation. Spleen: Unremarkable. No splenomegaly. Adrenals: Unremarkable. No mass. Kidneys and ureters: Nonobstructing right intrarenal calculus. Stomach and bowel: Unremarkable. No obstruction. No mucosal thickening. PELVIS: Appendix: No findings to suggest acute appendicitis. Bladder: Unremarkable. No mass. Reproductive: Indeterminate at irregular uterine masses. ABDOMEN and PELVIS: Intraperitoneal space: Unremarkable. No free air. No significant fluid collection. Bones/joints: No acute fracture. No dislocation. Soft tissues: Bilateral subcutaneous drainage catheters in a patient recently status post plastic surgery. Soft tissue gas throughout the subcutaneous fat abdomen and pelvis. Fluid attenuation and most prominent in the dependent portions near the posterior drainage catheters. No loculated fluid collections identified. Vasculature: Unremarkable. No abdominal aortic aneurysm. Lymph nodes: Unremarkable. No enlarged lymph nodes. IMPRESSION: Extensive soft tissue findings from recent surgical procedure with multiple superficial drainage catheters. Fluid and gas throughout the subcutaneous fat region abdomen and pelvis. No loculated fluid collections identified. Indeterminate irregular uterine masses. Anthony Koch Apr 29, 2020 17:35
[2020-04-29 20:00] VITALS: BP 131/92
[2020-04-29] MEDS: Vancomycin 1.5gm/300ml Premix IVPB SCH (21:07)
[2020-04-29] MEDS: Zolpidem 5mg tab ORAL PRN (21:07)
[2020-04-30] VITALS: BP 119/74
[2020-04-30] MEDS: Enoxaparin 40mg Inj SUBQ SCH ×2 (00:16→20:38)
[2020-04-30 04:00] VITALS: BP 130/87
[2020-04-30] MEDS: Piperacillin/Tazobactam 3.375 GM in NS 110 ML IVPB SCH ×3 (05:30→22:41)
[2020-04-30 07:53] LABS: BASOPHILS % (AUTO) 0.8 % (0.0-2.0); EOSINOPHILS % (AUTO) 2.4 % (0.0-3.0); HEMATOCRIT 27.8 % (37.0-47.0); HEMOGLOBIN 9.4 G/DL (12.0-16.0); LYMPHOCYTES % (AUTO) 17.5 % (20.0-45.0); MEAN CORPUSCULAR VOLUME 92 FL (80-99); MONOCYTES % (AUTO) 6.2 % (1.0-10.0); PLATELET COUNT 349 K/UL (150-450); RED BLOOD COUNT 3.03 M/UL (4.20-5.40); RED CELL DISTRIBUTION WIDTH 15.4 % (11.6-14.8); WHITE BLOOD COUNT 9.2 K/UL (4.8-10.8)
[2020-04-30 08:00] VITALS: BP 124/79
[2020-04-30 08:24] LABS: ANION GAP 6 mmol/L (5-15); BLOOD UREA NITROGEN 12 mg/dL (7-18); CALCIUM 8.1 MG/DL (8.5-10.1); CARBON DIOXIDE 28 MMOL/L (21-32); CHLORIDE 106 MMOL/L (98-107); CREATININE 1.1 MG/DL (0.55-1.30); POTASSIUM 3.7 MMOL/L (3.5-5.1); SODIUM 140 MMOL/L (136-145)
[2020-04-30] MEDS: Vancomycin 1.5gm/300ml Premix IVPB SCH ×2 (10:33→20:23)
--- NOTE | 2020-04-30 11:21 | General Progress Note ---
Subjective Allergies: Coded Allergies: No Known Allergies (Unverified , 12/03/19) Objective Last 24 Hour Vital Signs Date Time Temp Pulse Resp B/P (MAP) Pulse Ox O2 Delivery O2 Flow Rate FiO2 04/30/20 08:00 98.0 97 18 124/79 (94) 98 04/30/20 04:00 98.4 103 18 130/87 (101) 97 04/30/20 00:00 98.6 107 18 119/74 (89) 99 04/29/20 21:00 Room Air 04/29/20 20:00 99.0 108 18 131/92 (105) 97 04/29/20 16:00 98.7 104 18 121/70 (87) 97 04/29/20 12:00 99.2 107 18 135/72 (93) 97 Intake and Output 04/29/20 04/30/20 19:00 07:00 Intake Total 995.000 ml 450 ml Output Total 720 ml 400 ml Balance 275.000 ml 50 ml Intake Oral 500 ml 450 ml IV Total 495.000 ml Output Drainage Total 400 ml Other 720 ml # Voids 3 Laboratory Tests 04/29/20 17:10: Vancomycin Level Trough 23.4H 04/30/20 06:11: White Blood Count 9.2, Red Blood Count 3.03L, Hemoglobin 9.4L, Hematocrit 27.8L, Mean Corpuscular Volume 92, Mean Corpuscular Hemoglobin 31.0, Mean Corpuscular Hemoglobin Concent 33.8, Red Cell Distribution Width 15.4H, Platelet Count 349, Mean Platelet Volume 6.4L, Neutrophils (%) (Auto) 73.0, Lymphocytes (%) (Auto) 17.5L, Monocytes (%) (Auto) 6.2, Eosinophils (%) (Auto) 2.4, Basophils (%) (Auto) 0.8, Sodium Level 140, Potassium Level 3.7, Chloride Level 106, Carbon Dioxide Level 28, Anion Gap 6, Blood Urea Nitrogen 12, Creatinine 1.1, Estimat Glomerular Filtration Rate > 60, Glucose Level 98, Calcium Level 8.1L Height (Feet): 5 Height (Inches): 9.00 Weight (Pounds): 212 Assessment/Plan Status: stable Assessment/Plan: S, O: I am ok, denies pain or sob PHYSICAL EXAMINATION:HEAD AND NECK: Atraumatic and normocephalic.CHEST: Clear to auscultation. HEART: S1, S2. Regular rate and rhythm.ABDOMEN: Postoperative changes on the abdomen is noted. MUSCULOSKELETAL: No gross lateralized motor deficit. NEUROLOGY: Awake, alert, oriented x3. MEds: reviewed and reconciled ASSESSMENT AND PLAN: 1. Sepsis. 2. Cellulitis/wound infection in the abdominal area. 3. Post tummy tuck and postsurgical changes noted. 4. Acute anemia. 5. GI and DVT prophylaxes. 6. UTI- Gram negative PLAN OF CARE: Pending antibiogram current abx notes from ID and surgery reviewed Rochelle Johnson MD Apr 30, 2020 11:21
[2020-04-30 12:00] VITALS: BP 156/93
--- NOTE | 2020-04-30 12:17 | Surgery Progress Note ---
Surgery Progress Note Subjective Additional Comments still lots of drain output drain not ready for removal no n/v d/c planning outpatient f/u with her surgeon Objective Last 24 Hour Vital Signs Date Time Temp Pulse Resp B/P (MAP) Pulse Ox O2 Delivery O2 Flow Rate FiO2 04/30/20 09:00 Room Air 04/30/20 08:00 98.0 97 18 124/79 (94) 98 04/30/20 04:00 98.4 103 18 130/87 (101) 97 04/30/20 00:00 98.6 107 18 119/74 (89) 99 04/29/20 21:00 Room Air 04/29/20 20:00 99.0 108 18 131/92 (105) 97 04/29/20 16:00 98.7 104 18 121/70 (87) 97 I&O Intake and Output 04/29/20 04/30/20 19:00 07:00 Intake Total 995.000 ml 450 ml Output Total 720 ml 400 ml Balance 275.000 ml 50 ml Intake Oral 500 ml 450 ml IV Total 495.000 ml Output Drainage Total 400 ml Other 720 ml # Voids 3 Dressing: dry Wound: clean Drains: hemovac Cardiovascular: RSR Respiratory: clear Abdomen: soft, non-tender Laboratory Tests Test 04/29/20 17:10 04/30/20 06:11 Vancomycin Level Trough 23.4 ug/mL (5.0-12.0) H White Blood Count 9.2 K/UL (4.8-10.8) Red Blood Count 3.03 M/UL (4.20-5.40) L Hemoglobin 9.4 G/DL (12.0-16.0) L Hematocrit 27.8 % (37.0-47.0) L Mean Corpuscular Volume 92 FL (80-99) Mean Corpuscular Hemoglobin 31.0 PG (27.0-31.0) Mean Corpuscular Hemoglobin Concent 33.8 G/DL (32.0-36.0) Red Cell Distribution Width 15.4 % (11.6-14.8) H Platelet Count 349 K/UL (150-450) Mean Platelet Volume 6.4 FL (6.5-10.1) L Neutrophils (%) (Auto) 73.0 % (45.0-75.0) Lymphocytes (%) (Auto) 17.5 % (20.0-45.0) L Monocytes (%) (Auto) 6.2 % (1.0-10.0) Eosinophils (%) (Auto) 2.4 % (0.0-3.0) Basophils (%) (Auto) 0.8 % (0.0-2.0) Sodium Level 140 MMOL/L (136-145) Potassium Level 3.7 MMOL/L (3.5-5.1) Chloride Level 106 MMOL/L (98-107) Carbon Dioxide Level 28 MMOL/L (21-32) Anion Gap 6 mmol/L (5-15) Blood Urea Nitrogen 12 mg/dL (7-18) Creatinine 1.1 MG/DL (0.55-1.30) Estimat Glomerular Filtration Rate > 60 mL/min (>60) Glucose Level 98 MG/DL (74-106) Calcium Level 8.1 MG/DL (8.5-10.1) L Plan Problems: (1) Post-op pain (2) Postoperative anemia (3) Abdominal pain Assessment & Plan: 39-year-old female recent abdominal plasty began to have fluid retention anasarca presented for evaluation complaining of abdominal pain. States she wants fluid removed. CT noted identified no fluid collections noted diffuse anasarca identified leukocytosis drain output minimal drain in place wound clean dry intact. No acute surgical intervention at this time. Wound does not look infected. Patient likely third spacing will need monitoring. Wound currently in tact but if continues to have worsening anasarca may have dehiscence. Drain evaluated and functional. No acute surgical invention at this time. Patient to follow-up with her surgeon once discharged. Will follow while in-house and monitor. Thank you for allowing me to participate patient's care. okay for diet pain control incentive spirometry activity as tolerated ?lasix am labs drain care cont current care d/c planning outpatient f/u with her surgeon to d/c drain once ready. currently output too much. drain volume diary to eval 24h output ABDOMEN: Liver: Unremarkable. No mass. Gallbladder and bile ducts: The gallbladder is contracted. No calcified stones. No ductal dilation. Pancreas: Unremarkable. No mass. No ductal dilation. Spleen: Unremarkable. No splenomegaly. Adrenals: Unremarkable. No mass. Kidneys and ureters: Nonobstructing right intrarenal calculus. Stomach and bowel: Unremarkable. No obstruction. No mucosal thickening. PELVIS: Appendix: No findings to suggest acute appendicitis. Bladder: Unremarkable. No mass. Reproductive: Indeterminate at irregular uterine masses. ABDOMEN and PELVIS: Intraperitoneal space: Unremarkable. No free air. No significant fluid collection. Bones/joints: No acute fracture. No dislocation. Soft tissues: Bilateral subcutaneous drainage catheters in a patient recently status post plastic surgery. Soft tissue gas throughout the subcutaneous fat abdomen and pelvis. Fluid attenuation and most prominent in the dependent portions near the posterior drainage catheters. No loculated fluid collections identified. Vasculature: Unremarkable. No abdominal aortic aneurysm. Lymph nodes: Unremarkable. No enlarged lymph nodes. IMPRESSION: Extensive soft tissue findings from recent surgical procedure with multiple superficial drainage catheters. Fluid and gas throughout the subcutaneous fat region abdomen and pelvis. No loculated fluid collections identified. Indeterminate irregular uterine masses. Anthony Koch Apr 30, 2020 12:17
--- NOTE | 2020-04-30 12:39 | General Progress Note ---
Subjective ROS Limited/Unobtainable: No Allergies: Coded Allergies: No Known Allergies (Unverified , 12/03/19) Objective Last 24 Hour Vital Signs Date Time Temp Pulse Resp B/P (MAP) Pulse Ox O2 Delivery O2 Flow Rate FiO2 04/30/20 09:00 Room Air 04/30/20 08:00 98.0 97 18 124/79 (94) 98 04/30/20 04:00 98.4 103 18 130/87 (101) 97 04/30/20 00:00 98.6 107 18 119/74 (89) 99 04/29/20 21:00 Room Air 04/29/20 20:00 99.0 108 18 131/92 (105) 97 04/29/20 16:00 98.7 104 18 121/70 (87) 97 Intake and Output 04/29/20 04/30/20 19:00 07:00 Intake Total 995.000 ml 450 ml Output Total 720 ml 400 ml Balance 275.000 ml 50 ml Intake Oral 500 ml 450 ml IV Total 495.000 ml Output Drainage Total 400 ml Other 720 ml # Voids 3 Laboratory Tests 04/29/20 17:10: Vancomycin Level Trough 23.4H 04/30/20 06:11: White Blood Count 9.2, Red Blood Count 3.03L, Hemoglobin 9.4L, Hematocrit 27.8L, Mean Corpuscular Volume 92, Mean Corpuscular Hemoglobin 31.0, Mean Corpuscular Hemoglobin Concent 33.8, Red Cell Distribution Width 15.4H, Platelet Count 349, Mean Platelet Volume 6.4L, Neutrophils (%) (Auto) 73.0, Lymphocytes (%) (Auto) 17.5L, Monocytes (%) (Auto) 6.2, Eosinophils (%) (Auto) 2.4, Basophils (%) (Auto) 0.8, Sodium Level 140, Potassium Level 3.7, Chloride Level 106, Carbon Dioxide Level 28, Anion Gap 6, Blood Urea Nitrogen 12, Creatinine 1.1, Estimat Glomerular Filtration Rate > 60, Glucose Level 98, Calcium Level 8.1L Height (Feet): 5 Height (Inches): 9.00 Weight (Pounds): 212 General Appearance: no apparent distress EENT: normal ENT inspection Neck: normal alignment Cardiovascular: normal rate Respiratory/Chest: decreased breath sounds Abdomen: normal bowel sounds, non tender, soft Extremities: non-tender Assessment/Plan Status: stable Assessment/Plan: Anemia recent abd surg fu H&H abx pain control wound care fu surg recs>>> drain not ready to be removed will Mason Perez MD Apr 30, 2020 12:39
[2020-04-30 16:00] VITALS: BP 131/82
--- NOTE | 2020-04-30 16:28 | Infectious Diseases Prog Note ---
Assessment/Plan Problems: (1) Status post abdominoplasty Assessment & Plan: with no sign of infection or wound dehiscence and CT scan is not showing any loculated fluid or abscess. will Continue Vanco and Zosyn empiric coverage pending blood culture, and urine culture, general surgery is following (2) UTI (urinary tract infection) Assessment & Plan: with gram-negative rods already on Zosyn pending culture (3) Postoperative anemia Assessment & Plan: suspect due to surgery status post blood transfusion monitor for any sign of bleeding Subjective Constitutional: Reports: no symptoms HEENT: Reports: no symptoms Respiratory: Reports: no symptoms Breasts: Reports: no symptoms Cardiovascular: Reports: no symptoms Gastrointestinal/Abdominal: Reports: bloating Genitourinary: Reports: no symptoms Neurologic: Reports: no symptoms Psychiatric: Reports: no symptoms Skin: Reports: no symptoms Endocrine: Reports: no symptoms Hematologic: Reports: no symptoms Musculoskeletal: Reports: no symptoms Allergies: Coded Allergies: No Known Allergies (Unverified , 12/03/19) she still have a lot of draining with right upper thigh swelling and lymphedema, no fever or chills Objective Last 24 Hour Vital Signs Date Time Temp Pulse Resp B/P (MAP) Pulse Ox O2 Delivery O2 Flow Rate FiO2 04/30/20 12:00 98.5 99 18 156/93 (114) 95 04/30/20 09:00 Room Air 04/30/20 08:00 98.0 97 18 124/79 (94) 98 04/30/20 04:00 98.4 103 18 130/87 (101) 97 04/30/20 00:00 98.6 107 18 119/74 (89) 99 04/29/20 21:00 Room Air 04/29/20 20:00 99.0 108 18 131/92 (105) 97 Height (Feet): 5 Height (Inches): 9.00 Weight (Pounds): 212 General Appearance: WD/WN, no acute distress HEENT: normocephalic, atraumatic, anicteric, mucous membranes moist, PERRL Respiratory/Chest: chest wall non-tender, lungs clear, normal breath sounds, no respiratory distress, no accessory muscle use Cardiovascular: normal peripheral pulses, normal rate, regular rhythm, no gallop/murmur, no JVD Abdomen: normal bowel sounds, no organomegaly, no mass, no scars, distended, tender, other - Tummy tuck surgical wound with no draining or day since with surgical drain in place putting a lot of fluid Genitourinary: normal external genitalia Extremities: no cyanosis, no clubbing Skin: no rash, no lesions, no ulcers 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, 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, 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, responsive Lymphatic: no neck adenopathy, no groin adenopathy Musculoskeletal: normal muscle bulk, no effusion Microbiology Date/Time Source Procedure Growth Status 04/28/20 10:30 Nasopharynx SARS-CoV-2 RdRp Gene Assay - Final Complete 04/28/20 10:30 Blood Blood Culture - Preliminary NO GROWTH AFTER 24 HOURS Resulted 04/28/20 10:15 Blood Blood Culture - Preliminary NO GROWTH AFTER 24 HOURS Resulted Laboratory Tests Test 04/29/20 17:10 04/30/20 06:11 Vancomycin Level Trough 23.4 ug/mL (5.0-12.0) H White Blood Count 9.2 K/UL (4.8-10.8) Red Blood Count 3.03 M/UL (4.20-5.40) L Hemoglobin 9.4 G/DL (12.0-16.0) L Hematocrit 27.8 % (37.0-47.0) L Mean Corpuscular Volume 92 FL (80-99) Mean Corpuscular Hemoglobin 31.0 PG (27.0-31.0) Mean Corpuscular Hemoglobin Concent 33.8 G/DL (32.0-36.0) Red Cell Distribution Width 15.4 % (11.6-14.8) H Platelet Count 349 K/UL (150-450) Mean Platelet Volume 6.4 FL (6.5-10.1) L Neutrophils (%) (Auto) 73.0 % (45.0-75.0) Lymphocytes (%) (Auto) 17.5 % (20.0-45.0) L Monocytes (%) (Auto) 6.2 % (1.0-10.0) Eosinophils (%) (Auto) 2.4 % (0.0-3.0) Basophils (%) (Auto) 0.8 % (0.0-2.0) Sodium Level 140 MMOL/L (136-145) Potassium Level 3.7 MMOL/L (3.5-5.1) Chloride Level 106 MMOL/L (98-107) Carbon Dioxide Level 28 MMOL/L (21-32) Anion Gap 6 mmol/L (5-15) Blood Urea Nitrogen 12 mg/dL (7-18) Creatinine 1.1 MG/DL (0.55-1.30) Estimat Glomerular Filtration Rate > 60 mL/min (>60) Glucose Level 98 MG/DL (74-106) Calcium Level 8.1 MG/DL (8.5-10.1) L Current Medications Medications (Trade) Dose Ordered Sig/Tiffani Route PRN Reason Start Time Stop Time Status Last Admin Dose Admin Acetaminophen (Tylenol) 650 mg Q4H PRN ORAL Temp >100.5 04/27/20 23:45 05/27/20 23:44 Dextrose (Dextrose 50%) 25 ml Q30M PRN IV Hypoglycemia 04/27/20 23:45 07/26/20 23:44 Dextrose (Dextrose 50%) 50 ml Q30M PRN IV Hypoglycemia 04/27/20 23:45 07/26/20 23:44 Enoxaparin Sodium (Lovenox) 40 mg Q24H SUBQ 04/28/20 00:45 07/27/20 00:44 04/30/20 00:16 Lorazepam (Ativan 2mg/ml 1ml) 0.5 mg Q4H PRN IV For Anxiety 04/27/20 23:45 05/04/20 23:44 Morphine Sulfate (Morphine Sulfate) 2 mg TID PRN IVP Moderate Pain (Pain Scale 4-6) 04/27/20 23:45 05/04/20 23:44 Ondansetron HCl (Zofran) 4 mg Q6H PRN IVP Nausea & Vomiting 04/27/20 23:45 05/27/20 23:44 Pantoprazole (Protonix) 40 mg DAILY ORAL 04/28/20 09:00 05/28/20 08:59 04/30/20 10:33 Piperacillin Sod/ Tazobactam Sod 3.375 gm/Sodium Chloride 110 ml @ 27.5 mls/hr EVERY 8 HOURS IVPB 04/28/20 22:00 05/03/20 21:59 04/30/20 14:21 Vancomycin HCl 300 ml @ 150 mls/hr Q12HR IVPB 04/29/20 21:00 05/04/20 20:59 04/30/20 10:33 Vancomycin HCl ([facility] pharmacy to dose) 1 ea DAILY PRN MISC Per rx protocol 04/28/20 10:15 05/28/20 10:14 Zolpidem Tartrate (Ambien) 5 mg HSPRN PRN ORAL Insomnia 04/27/20 23:45 05/04/20 23:44 04/29/20 21:07 Kerwin Fish M.D. Apr 30, 2020 16:28
[2020-04-30 19:51] VITALS: BP 144/97
[2020-04-30] MEDS: Zolpidem 5mg tab ORAL PRN (22:26)
[2020-05-01 04:00] VITALS: BP 124/75
[2020-05-01] MEDS: Piperacillin/Tazobactam 3.375 GM in NS 110 ML IVPB SCH ×3 (06:09→21:28)
--- NOTE | 2020-05-01 07:09 | General Progress Note ---
Subjective ROS Limited/Unobtainable: Yes Allergies: Coded Allergies: No Known Allergies (Unverified , 12/03/19) Objective Last 24 Hour Vital Signs Date Time Temp Pulse Resp B/P (MAP) Pulse Ox O2 Delivery O2 Flow Rate FiO2 05/01/20 04:00 98.7 100 20 124/75 (91) 97 04/30/20 21:00 Room Air 04/30/20 19:51 98.6 18 144/97 (113) 97 04/30/20 16:00 98.3 104 18 131/82 (98) 98 04/30/20 12:00 98.5 99 18 156/93 (114) 95 04/30/20 09:00 Room Air 04/30/20 08:00 98.0 97 18 124/79 (94) 98 Intake and Output 04/30/20 05/01/20 19:00 07:00 Intake Total 500 ml 480 ml Output Total 400 ml Balance 100 ml 480 ml Intake Oral 500 ml 480 ml Output Drainage Total 400 ml # Voids 2 2 Laboratory Tests 04/30/20 19:57: Vancomycin Level Trough 16.5H Height (Feet): 5 Height (Inches): 9.00 Weight (Pounds): 212 General Appearance: alert EENT: normal ENT inspection Neck: supple Cardiovascular: normal rate Respiratory/Chest: decreased breath sounds Abdomen: hypoactive bowel sounds Extremities: non-tender Assessment/Plan Status: stable Assessment/Plan: Anemia recent abd surg fu H&H neg stool ob abx pain control wound care fu surg recs>>> drain not ready to be removed will Mason Perez MD May 01, 2020 07:09
[2020-05-01 08:00] VITALS: BP 136/89
[2020-05-01] MEDS: Vancomycin 1.5gm/300ml Premix IVPB SCH ×4 (08:29→21:20)
[2020-05-01 12:00] VITALS: BP 131/83
--- NOTE | 2020-05-01 15:06 | Infectious Diseases Prog Note ---
Assessment/Plan Problems: (1) Status post abdominoplasty Assessment & Plan: with no sign of infection or wound dehiscence and CT scan is not showing any loculated fluid or abscess. will Continue Zosyn empiric coverage pending blood culture, and urine culture, general surgery is following (2) UTI (urinary tract infection) Assessment & Plan: with gram-negative rods already on Zosyn pending culture (3) Postoperative anemia Assessment & Plan: suspect due to surgery status post blood transfusion monitor for any sign of bleeding Subjective Constitutional: Reports: no symptoms HEENT: Reports: no symptoms Respiratory: Reports: no symptoms Breasts: Reports: no symptoms Cardiovascular: Reports: no symptoms Gastrointestinal/Abdominal: Reports: no symptoms Genitourinary: Reports: no symptoms Neurologic: Reports: no symptoms Psychiatric: Reports: no symptoms Skin: Reports: no symptoms Endocrine: Reports: no symptoms Hematologic: Reports: no symptoms Musculoskeletal: Reports: no symptoms Allergies: Coded Allergies: No Known Allergies (Unverified , 12/03/19) she had less draining from the surgical site with right upper thigh swelling and lymphedema, no fever or chills Objective Last 24 Hour Vital Signs Date Time Temp Pulse Resp B/P (MAP) Pulse Ox O2 Delivery O2 Flow Rate FiO2 05/01/20 09:00 Room Air 05/01/20 08:00 98.1 105 20 136/89 (105) 98 05/01/20 04:00 98.7 100 20 124/75 (91) 97 04/30/20 21:00 Room Air 04/30/20 19:51 98.6 18 144/97 (113) 97 04/30/20 16:00 98.3 104 18 131/82 (98) 98 Height (Feet): 5 Height (Inches): 9.00 Weight (Pounds): 212 General Appearance: WD/WN, no acute distress HEENT: normocephalic, atraumatic, anicteric, mucous membranes moist, PERRL Respiratory/Chest: chest wall non-tender, lungs clear, normal breath sounds, no respiratory distress, no accessory muscle use Cardiovascular: normal peripheral pulses, normal rate, regular rhythm, no gallop/murmur, no JVD Abdomen: soft, non tender, no organomegaly, non distended, no mass, hypoactive bowel sounds, distended, other - Tummy tuck surgical wound intact with surgical drain in place Genitourinary: normal external genitalia Extremities: no cyanosis, no clubbing Skin: no rash, no lesions 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, 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, 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 Lymphatic: no neck adenopathy, no groin adenopathy Musculoskeletal: normal muscle bulk, no effusion Microbiology Date/Time Source Procedure Growth Status 04/29/20 16:35 Body Fluid Gram Stain - Final Resulted 04/29/20 16:35 Body Fluid Body Fluid Culture - Preliminary Resulted Laboratory Tests Test 04/30/20 19:57 Vancomycin Level Trough 16.5 ug/mL (5.0-12.0) H Current Medications Medications (Trade) Dose Ordered Sig/Tiffani Route PRN Reason Start Time Stop Time Status Last Admin Dose Admin Acetaminophen (Tylenol) 650 mg Q4H PRN ORAL Temp >100.5 04/27/20 23:45 05/27/20 23:44 Dextrose (Dextrose 50%) 25 ml Q30M PRN IV Hypoglycemia 04/27/20 23:45 07/26/20 23:44 Dextrose (Dextrose 50%) 50 ml Q30M PRN IV Hypoglycemia 04/27/20 23:45 07/26/20 23:44 Enoxaparin Sodium (Lovenox) 40 mg Q24H SUBQ 04/30/20 21:00 07/29/20 20:59 04/30/20 20:38 Lorazepam (Ativan 2mg/ml 1ml) 0.5 mg Q4H PRN IV For Anxiety 04/27/20 23:45 05/04/20 23:44 Morphine Sulfate (Morphine Sulfate) 2 mg TID PRN IVP Moderate Pain (Pain Scale 4-6) 04/27/20 23:45 05/04/20 23:44 Ondansetron HCl (Zofran) 4 mg Q6H PRN IVP Nausea & Vomiting 04/27/20 23:45 05/27/20 23:44 Pantoprazole (Protonix) 40 mg DAILY ORAL 04/28/20 09:00 05/28/20 08:59 05/01/20 08:28 Piperacillin Sod/ Tazobactam Sod 3.375 gm/Sodium Chloride 110 ml @ 27.5 mls/hr EVERY 8 HOURS IVPB 04/28/20 22:00 05/03/20 21:59 05/01/20 06:09 Vancomycin HCl 300 ml @ 150 mls/hr Q12HR IVPB 04/29/20 21:00 05/04/20 20:59 04/30/20 20:23 Vancomycin HCl ([facility] pharmacy to dose) 1 ea DAILY PRN MISC Per rx protocol 04/28/20 10:15 05/28/20 10:14 Zolpidem Tartrate (Ambien) 5 mg HSPRN PRN ORAL Insomnia 04/27/20 23:45 05/04/20 23:44 04/30/20 22:26 Kerwin Fish M.D. May 01, 2020 15:06
--- NOTE | 2020-05-01 15:32 | General Progress Note ---
Subjective Allergies: Coded Allergies: No Known Allergies (Unverified , 12/03/19) Objective Last 24 Hour Vital Signs Date Time Temp Pulse Resp B/P (MAP) Pulse Ox O2 Delivery O2 Flow Rate FiO2 05/01/20 09:00 Room Air 05/01/20 08:00 98.1 105 20 136/89 (105) 98 05/01/20 04:00 98.7 100 20 124/75 (91) 97 04/30/20 21:00 Room Air 04/30/20 19:51 98.6 18 144/97 (113) 97 04/30/20 16:00 98.3 104 18 131/82 (98) 98 Intake and Output 04/30/20 05/01/20 19:00 07:00 Intake Total 500 ml 480 ml Output Total 400 ml Balance 100 ml 480 ml Intake Oral 500 ml 480 ml Output Drainage Total 400 ml # Voids 2 2 Laboratory Tests 04/30/20 19:57: Vancomycin Level Trough 16.5H Height (Feet): 5 Height (Inches): 9.00 Weight (Pounds): 212 Assessment/Plan Status: stable Assessment/Plan: S, O: I am ok, denies pain or sob PHYSICAL EXAMINATION:HEAD AND NECK: Atraumatic and normocephalic.CHEST: Clear to auscultation. HEART: S1, S2. Regular rate and rhythm.ABDOMEN: Postoperative changes on the abdomen is noted. MUSCULOSKELETAL: No gross lateralized motor deficit. NEUROLOGY: Awake, alert, oriented x3. MEds: reviewed and reconciled ASSESSMENT AND PLAN: 1. Sepsis. 2. Cellulitis/wound infection in the abdominal area. 3. Post tummy tuck and postsurgical changes noted. 4. Acute anemia. 5. GI and DVT prophylaxes. 6. UTI- Gram negative PLAN OF CARE: Pending antibiogram Refusal of IV abx notes from ID and surgery reviewed D/w the Surgeon, agreed for the need for outpatient followup with PCP to obtain appropriate Referrals Pending Urine culture Rochelle Johnson MD May 01, 2020 15:32
[2020-05-01 16:00] VITALS: BP 138/87
[2020-05-01] MEDS ORDERED: Tubing IV Secondary IV ONE (17:22)
--- NOTE | 2020-05-01 18:05 | Surgery Progress Note ---
Surgery Progress Note Subjective Additional Comments patient seen and examined at bedside. initially stated that she received too much fluids overnight and that her incision opened and is draining. states unable to put her undergarments/compression stockings given to her by plastic surgeon. once examined we clearly noted that there was no drainage and incision well healing without issue. patient then began to state that drain was not functioning properly as prior putting out >100cc/day but now is not. drain evaluated and functioning well but drainage has decreased. on exam noted to h ave right sided dependant edema as she has been laying on her right side. wound is clean and dry. still with mild anasarca and subcutaneous edema around the abdominoplasty. umbilical evaluated and noted to have sutures visible as well as some necrotic tissue from umbilical revision/reimplantation/creation. no signs of active infection noted at this time. I asked patient for the number to her surgeon in [place], [place] so we could discuss care plan and obtain records but currently waiting for this information from patient. from a surgical standpoint no acute general surgical intervention planned at this time. patient does need to follow up with her primary surgeon for drain removal. she does need to follow up with her pcp and primary surgeon to monitor edema and post op care. no abscess noted or drainable fluid collection. no n/v/f/c. labs okay. exam stable. d/c planning with outpatient follow up as above. Objective Last 24 Hour Vital Signs Date Time Temp Pulse Resp B/P (MAP) Pulse Ox O2 Delivery O2 Flow Rate FiO2 05/01/20 16:00 99.5 98 18 138/87 (104) 97 05/01/20 12:00 98.0 100 18 131/83 (99) 95 05/01/20 09:00 Room Air 05/01/20 08:00 98.1 105 20 136/89 (105) 98 05/01/20 04:00 98.7 100 20 124/75 (91) 97 04/30/20 21:00 Room Air 04/30/20 19:51 98.6 18 144/97 (113) 97 I&O Intake and Output 04/30/20 05/01/20 19:00 07:00 Intake Total 500 ml 480 ml Output Total 400 ml Balance 100 ml 480 ml Intake Oral 500 ml 480 ml Output Drainage Total 400 ml # Voids 2 2 Wound: clean, dry, intact Drains: hemovac Cardiovascular: RSR Respiratory: clear Abdomen: soft, flat, non-tender, present bowel sounds, other - edema Extremities: edema, no tenderness, no cyanosis Laboratory Tests Test 04/30/20 19:57 Vancomycin Level Trough 16.5 ug/mL (5.0-12.0) H Plan Problems: (1) Post-op pain (2) Postoperative anemia (3) Abdominal pain Assessment & Plan: 39-year-old female recent abdominal plasty began to have fluid retention anasarca presented for evaluation complaining of abdominal pain. States she wants fluid removed. CT noted identified no fluid collections noted diffuse anasarca identified leukocytosis drain output minimal drain in place wound clean dry intact. No acute surgical intervention at this time. Wound does not look infected. Patient likely third spacing will need monitoring. Wound currently in tact but if continues to have worsening anasarca may have dehiscence. Drain evaluated and functional. No acute surgical invention at this time. Patient to follow-up with her surgeon once discharged. Will follow while in-house and monitor. Thank you for allowing me to participate patient's care. okay for diet pain control incentive spirometry activity as tolerated ?lasix am labs drain care cont current care d/c planning outpatient f/u with her surgeon to d/c drain once ready. currently output too much. drain volume diary to eval 24h output patient seen and examined at bedside. initially stated that she received too much fluids overnight and that her incision opened and is draining. states unable to put her undergarments/compression stockings given to her by plastic surgeon. once examined we clearly noted that there was no drainage and incision well healing without issue. patient then began to state that drain was not functioning properly as prior putting out >100cc/day but now is not. drain evaluated and functioning well but drainage has decreased. on exam noted to have right sided dependant edema as she has been laying on her right side. wound is clean and dry. still with mild anasarca and subcutaneous edema around the abdominoplasty. umbilical evaluated and noted to have sutures visible as well as some necrotic tissue from umbilical revision/reimplantation/creation. no signs of active infection noted at this time. I asked patient for the number to her surgeon in [place], [place] so we could discuss care plan and obtain records but currently waiting for this information from patient. from a surgical standpoint no acute general surgical intervention planned at this time. patient does need to follow up with her primary surgeon for drain removal. she does need to follow up with her pcp and primary surgeon to monitor edema and post op care. no abscess noted or drainable fluid collection. no n/v/f/c. labs okay. exam stable. d/c planning with outpatient follow up as above. currently refusing abx as she feels the 250cc fluid with abx is causing her edema discussed with team for oral abx coverage ABDOMEN: Liver: Unremarkable. No mass. Gallbladder and bile ducts: The gallbladder is contracted. No calcified stones. No ductal dilation. Pancreas: Unremarkable. No mass. No ductal dilation. Spleen: Unremarkable. No splenomegaly. Adrenals: Unremarkable. No mass. Kidneys and ureters: Nonobstructing right intrarenal calculus. Stomach and bowel: Unremarkable. No obstruction. No mucosal thickening. PELVIS: Appendix: No findings to suggest acute appendicitis. Bladder: Unremarkable. No mass. Reproductive: Indeterminate at irregular uterine masses. ABDOMEN and PELVIS: Intraperitoneal space: Unremarkable. No free air. No significant fluid collection. Bones/joints: No acute fracture. No dislocation. Soft tissues: Bilateral subcutaneous drainage catheters in a patient recently status post plastic surgery. Soft tissue gas throughout the subcutaneous fat abdomen and pelvis. Fluid attenuation and most prominent in the dependent portions near the posterior drainage catheters. No loculated fluid collections identified. Vasculature: Unremarkable. No abdominal aortic aneurysm. Lymph nodes: Unremarkable. No enlarged lymph nodes. IMPRESSION: Extensive soft tissue findings from recent surgical procedure with multiple superficial drainage catheters. Fluid and gas throughout the subcutaneous fat region abdomen and pelvis. No loculated fluid collections identified. Indeterminate irregular uterine masses. Anthony Koch May 01, 2020 18:04
[2020-05-01 20:00] VITALS: BP 117/69
[2020-05-01] MEDS: Enoxaparin 40mg Inj SUBQ SCH (20:41)
[2020-05-01] MEDS: Zolpidem 5mg tab ORAL PRN (21:21)
[2020-05-02] VITALS: BP 113/72
[2020-05-02 04:00] VITALS: BP 129/80
[2020-05-02] MEDS: Piperacillin/Tazobactam 3.375 GM in NS 110 ML IVPB SCH (05:29)
[2020-05-02 08:00] VITALS: BP 123/75
[2020-05-02] MEDS ORDERED: Ertapenem (INVanz) 1gm Inj IM SCH (09:15)
--- NOTE | 2020-05-02 09:21 | General Progress Note ---
Subjective ROS Limited/Unobtainable: Yes Allergies: Coded Allergies: No Known Allergies (Unverified , 12/03/19) Objective Last 24 Hour Vital Signs Date Time Temp Pulse Resp B/P (MAP) Pulse Ox O2 Delivery O2 Flow Rate FiO2 05/02/20 04:00 99.5 102 16 129/80 (96) 98 05/02/20 00:00 98.7 109 18 113/72 (86) 96 05/01/20 21:00 Room Air 05/01/20 20:00 98.7 104 16 117/69 (85) 98 05/01/20 16:00 99.5 98 18 138/87 (104) 97 05/01/20 12:00 98.0 100 18 131/83 (99) 95 Intake and Output 05/01/20 05/02/20 19:00 07:00 Intake Total 600 ml 400 ml Output Total 550 ml Balance 600 ml -150 ml Intake Oral 600 ml 400 ml Output Drainage Total 550 ml # Voids 3 3 Height (Feet): 5 Height (Inches): 9.00 Weight (Pounds): 212 General Appearance: no apparent distress EENT: PERRL/EOMI Neck: supple Cardiovascular: normal rate Respiratory/Chest: lungs clear Abdomen: hypoactive bowel sounds Extremities: non-tender Assessment/Plan Status: stable Assessment/Plan: Anemia recent abd surg fu H&H neg stool ob abx pain control wound care fu surg recs>>> drain not ready to be removed needs out patient fu with her surgeon will Mason Perez MD May 02, 2020 09:21
[2020-05-02 12:00] VITALS: BP 149/92
--- NOTE | 2020-05-02 12:02 | General Progress Note ---
Subjective Allergies: Coded Allergies: No Known Allergies (Unverified , 12/03/19) Objective Last 24 Hour Vital Signs Date Time Temp Pulse Resp B/P (MAP) Pulse Ox O2 Delivery O2 Flow Rate FiO2 05/02/20 09:00 Room Air 05/02/20 08:00 98.1 99 18 123/75 (91) 98 05/02/20 04:00 99.5 102 16 129/80 (96) 98 05/02/20 00:00 98.7 109 18 113/72 (86) 96 05/01/20 21:00 Room Air 05/01/20 20:00 98.7 104 16 117/69 (85) 98 05/01/20 16:00 99.5 98 18 138/87 (104) 97 Intake and Output 05/01/20 05/02/20 19:00 07:00 Intake Total 600 ml 400 ml Output Total 550 ml Balance 600 ml -150 ml Intake Oral 600 ml 400 ml Output Drainage Total 550 ml # Voids 3 3 Height (Feet): 5 Height (Inches): 9.00 Weight (Pounds): 212 Assessment/Plan Status: stable Assessment/Plan: S, O: I am ok, denies pain or sob PHYSICAL EXAMINATION:HEAD AND NECK: Atraumatic and normocephalic.CHEST: Clear to auscultation. HEART: S1, S2. Regular rate and rhythm.ABDOMEN: Postoperative changes on the abdomen is noted. MUSCULOSKELETAL: No gross lateralized motor deficit. NEUROLOGY: Awake, alert, oriented x3. MEds: reviewed and reconciled ASSESSMENT AND PLAN: 1. Sepsis. 2. Cellulitis/wound infection in the abdominal area. 3. Post tummy tuck and postsurgical changes noted. 4. Acute anemia. 5. GI and DVT prophylaxes. 6. UTI- Gram negative PLAN OF CARE: Refusal of IV abx notes from ID and surgery reviewed D/w the Surgeon, agreed for the need for outpatient followup with PCP to obtain appropriate Referrals Pending Body fluid culture Rochelle Johnson MD May 02, 2020 12:02
[2020-05-02] MEDS: Ertapenem 1gm in NS 55ml IV SCH (12:15)
--- NOTE | 2020-05-02 13:13 | Infectious Diseases Prog Note ---
Assessment/Plan Problems: (1) Status post abdominoplasty Assessment & Plan: with no sign of infection or wound dehiscence and CT scan is not showing any loculated fluid or abscess. fluid culture from the surgical drain has a scant growth of gram-negative rods possibly contaminants, will Switch Zosyn empiric coverage to ertapenem to treat for UTI due to ESBL producing Klebsiella pneumoniae, advised patient to follow up with her own surgeon upon discharge as an outpatient in [place] (2) UTI (urinary tract infection) Assessment & Plan: with ESBL producing Klebsiella pneumoniae, we will start ertapenem treatment for 7-10 days (3) Postoperative anemia Assessment & Plan: suspect due to surgery status post blood transfusion monitor for any sign of bleeding Subjective Constitutional: Reports: no symptoms HEENT: Reports: no symptoms Respiratory: Reports: no symptoms Breasts: Reports: no symptoms Cardiovascular: Reports: no symptoms Gastrointestinal/Abdominal: Reports: bloating Genitourinary: Reports: no symptoms Neurologic: Reports: no symptoms Psychiatric: Reports: no symptoms Skin: Reports: no symptoms Endocrine: Reports: no symptoms Hematologic: Reports: no symptoms Musculoskeletal: Reports: no symptoms Allergies: Coded Allergies: No Known Allergies (Unverified , 12/03/19) she had less draining from the surgical site with right upper thigh swelling and lymphedema, no fever or chills Objective Last 24 Hour Vital Signs Date Time Temp Pulse Resp B/P (MAP) Pulse Ox O2 Delivery O2 Flow Rate FiO2 05/02/20 12:00 98.4 104 20 149/92 (111) 99 05/02/20 09:00 Room Air 05/02/20 08:00 98.1 99 18 123/75 (91) 98 05/02/20 04:00 99.5 102 16 129/80 (96) 98 05/02/20 00:00 98.7 109 18 113/72 (86) 96 05/01/20 21:00 Room Air 05/01/20 20:00 98.7 104 16 117/69 (85) 98 05/01/20 16:00 99.5 98 18 138/87 (104) 97 Height (Feet): 5 Height (Inches): 9.00 Weight (Pounds): 212 General Appearance: WD/WN, no acute distress HEENT: normocephalic, atraumatic, anicteric, mucous membranes moist, PERRL Respiratory/Chest: chest wall non-tender, lungs clear, normal breath sounds, no respiratory distress, no accessory muscle use Cardiovascular: normal peripheral pulses, normal rate, regular rhythm Abdomen: normal bowel sounds, soft, non tender, no organomegaly, no mass, distended Extremities: no cyanosis, no clubbing Skin: no rash, no lesions 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, no motor/sensory deficits, alert, responsive Lymphatic: no neck adenopathy, no groin adenopathy Musculoskeletal: normal muscle bulk, no effusion Microbiology Date/Time Source Procedure Growth Status 04/29/20 16:35 Body Fluid Gram Stain - Final Resulted 04/29/20 16:35 Body Fluid Culture - Preliminary Gram Negative Ezra Resulted Current Medications Medications (Trade) Dose Ordered Sig/Tiffani Route PRN Reason Start Time Stop Time Status Last Admin Dose Admin Acetaminophen (Tylenol) 650 mg Q4H PRN ORAL Temp >100.5 04/27/20 23:45 05/27/20 23:44 Dextrose (Dextrose 50%) 25 ml Q30M PRN IV Hypoglycemia 04/27/20 23:45 07/26/20 23:44 Dextrose (Dextrose 50%) 50 ml Q30M PRN IV Hypoglycemia 04/27/20 23:45 07/26/20 23:44 Enoxaparin Sodium (Lovenox) 40 mg Q24H SUBQ 04/30/20 21:00 07/29/20 20:59 05/01/20 20:41 Ertapenem 1 gm/ Sodium Chloride 55 ml @ 110 mls/hr Q24H IV 05/02/20 12:00 05/07/20 11:59 05/02/20 12:15 Lorazepam (Ativan 2mg/ml 1ml) 0.5 mg Q4H PRN IV For Anxiety 04/27/20 23:45 05/04/20 23:44 Morphine Sulfate (Morphine Sulfate) 2 mg TID PRN IVP Moderate Pain (Pain Scale 4-6) 04/27/20 23:45 05/04/20 23:44 Ondansetron HCl (Zofran) 4 mg Q6H PRN IVP Nausea & Vomiting 04/27/20 23:45 05/27/20 23:44 Pantoprazole (Protonix) 40 mg DAILY ORAL 04/28/20 09:00 05/28/20 08:59 05/02/20 09:12 Zolpidem Tartrate (Ambien) 5 mg HSPRN PRN ORAL Insomnia 04/27/20 23:45 05/04/20 23:44 05/01/20 21:21 Kerwin Fish M.D. May 02, 2020 13:13
--- NOTE | 2020-05-02 14:19 | Surgery Progress Note ---
Surgery Progress Note Subjective Additional Comments Patient seen and examined bedside. No acute events. States she feels much better today. States she is able to put on her binder today. States pain is decreased. States is able to ambulate. States edema in the legs and abdomen is decreased. No drainage from the wound. Wound evaluated and stable. States she is monitoring the drain and now is functional and has noted approximately 700 cc in the past 24 hours as per her report. Discussed with nursing. Patient identified microbiology UTI. ESBL discussed with PCP and ID and patient Objective Last 24 Hour Vital Signs Date Time Temp Pulse Resp B/P (MAP) Pulse Ox O2 Delivery O2 Flow Rate FiO2 05/02/20 12:00 98.4 104 20 149/92 (111) 99 05/02/20 09:00 Room Air 05/02/20 08:00 98.1 99 18 123/75 (91) 98 05/02/20 04:00 99.5 102 16 129/80 (96) 98 05/02/20 00:00 98.7 109 18 113/72 (86) 96 05/01/20 21:00 Room Air 05/01/20 20:00 98.7 104 16 117/69 (85) 98 05/01/20 16:00 99.5 98 18 138/87 (104) 97 I&O Intake and Output 05/01/20 05/02/20 19:00 07:00 Intake Total 600 ml 400 ml Output Total 550 ml Balance 600 ml -150 ml Intake Oral 600 ml 400 ml Output Drainage Total 550 ml # Voids 3 3 Dressing: dry Wound: clean Drains: hemovac Cardiovascular: RSR Respiratory: clear Abdomen: soft, non-tender, other, non-distended Extremities: edema, no tenderness, no cyanosis Plan Problems: (1) Post-op pain (2) Postoperative anemia (3) Abdominal pain Assessment & Plan: 39-year-old female recent abdominal plasty began to have fluid retention anasarca presented for evaluation complaining of abdominal pain. States she wants fluid removed. CT noted identified no fluid collections noted diffuse anasarca identified leukocytosis drain output minimal drain in place wound clean dry intact. No acute surgical intervention at this time. Wound does not look infected. Patient likely third spacing will need monitoring. Wound currently in tact but if continues to have worsening anasarca may have deh iscence. Drain evaluated and functional. No acute surgical invention at this time. Patient to follow-up with her surgeon once discharged. Will follow while in-house and monitor. Thank you for allowing me to participate patient's care. okay for diet pain control incentive spirometry activity as tolerated ?lasix am labs drain care cont current care d/c planning outpatient f/u with her surgeon to d/c drain once ready. currently output too much. drain volume diary to eval 24h output patient seen and examined at bedside. initially stated that she received too much fluids overnight and that her incision opened and is draining. states unable to put her undergarments/compression stockings given to her by plastic surgeon. once examined we clearly noted that there was no drainage and incision well healing without issue. patient then began to state that drain was not functioning properly as prior putting out >100cc/day but now is not. drain evaluated and functioning well but drainage has decreased. on exam noted to have right sided dependant edema as she has been laying on her right side. wound is clean and dry. still with mild anasarca and subcutaneous edema around the abdominoplasty. umbilical evaluated and noted to have sutures visible as well as some necrotic tissue from umbilical revision/reimplantation/creation. no signs of active infection noted at this time. I asked patient for the number to her surgeon in [place], [place] so we could discuss care plan and obtain records but currently waiting for this information from patient. from a surgical standpoint no acute general surgical intervention planned at this time. patient does need to follow up with her primary surgeon for drain removal. she does need to follow up with her pcp and primary surgeon to monitor edema and post op care. no abscess noted or drainable fluid collection. no n/v/f/c. labs okay. exam stable. d/c planning with outpatient follow up as above. currently refusing abx as she feels the 250cc fluid with abx is causing her edema discussed with team for oral abx coverage abx for uti patient express understanding and today would like iv abx if needed. wound without signs of infection drain output significant but serous only no pus no abscess no cellulitis abx for uti ABDOMEN: Liver: Unremarkable. No mass. Gallbladder and bile ducts: The gallbladder is contracted. No calcified stones. No ductal dilation. Pancreas: Unremarkable. No mass. No ductal dilation. Spleen: Unremarkable. No splenomegaly. Adrenals: Unremarkable. No mass. Kidneys and ureters: Nonobstructing right intrarenal calculus. Stomach and bowel: Unremarkable. No obstruction. No mucosal thickening. PELVIS: Appendix: No findings to suggest acute appendicitis. Bladder: Unremarkable. No mass. Reproductive: Indeterminate at irregular uterine masses. ABDOMEN and PELVIS: Intraperitoneal space: Unremarkable. No free air. No significant fluid collection. Bones/joints: No acute fracture. No dislocation. Soft tissues: Bilateral subcutaneous drainage catheters in a patient recently status post plastic surgery. Soft tissue gas throughout the subcutaneous fat abdomen and pelvis. Fluid attenuation and most prominent in the dependent portions near the posterior drainage catheters. No loculated fluid collections identified. Vasculature: Unremarkable. No abdominal aortic aneurysm. Lymph nodes: Unremarkable. No enlarged lymph nodes. IMPRESSION: Extensive soft tissue findings from recent surgical procedure with multiple superficial drainage catheters. Fluid and gas throughout the subcutaneous fat region abdomen and pelvis. No loculated fluid collections identified. Indeterminate irregular uterine masses. Anthony Koch May 02, 2020 14:19
[2020-05-02 16:00] VITALS: BP 131/69
[2020-05-02 20:00] VITALS: BP 132/83
[2020-05-02] MEDS: Zolpidem 5mg tab ORAL PRN (20:45)
[2020-05-02] MEDS: Enoxaparin 40mg Inj SUBQ SCH (20:47)
[2020-05-03 04:00] VITALS: BP 124/79
[2020-05-03 05:56] LABS: BASOPHILS % (AUTO) 7.3 % (0.0-2.0); EOSINOPHILS % (AUTO) 4.1 % (0.0-3.0); HEMATOCRIT 29.2 % (37.0-47.0); HEMOGLOBIN 9.3 G/DL (12.0-16.0); LYMPHOCYTES % (AUTO) 17.2 % (20.0-45.0); MEAN CORPUSCULAR VOLUME 96 FL (80-99); MONOCYTES % (AUTO) 11.1 % (1.0-10.0); NEUTROPHILS % (AUTO) 60.4 % (45.0-75.0); PLATELET COUNT 316 K/UL (150-450); RED BLOOD COUNT 3.04 M/UL (4.20-5.40); RED CELL DISTRIBUTION WIDTH 15.8 % (11.6-14.8); WHITE BLOOD COUNT 4.7 K/UL (4.8-10.8)
[2020-05-03 06:44] LABS: ANION GAP 13 mmol/L (5-15); BLOOD UREA NITROGEN 9 mg/dL (7-18); CALCIUM 8.2 MG/DL (8.5-10.1); CARBON DIOXIDE 21 MMOL/L (21-32); CHLORIDE 108 MMOL/L (98-107); CREATININE 1.1 MG/DL (0.55-1.30); POTASSIUM 4.2 MMOL/L (3.5-5.1); SODIUM 142 MMOL/L (136-145)
[2020-05-03 08:00] VITALS: BP 131/87
--- NOTE | 2020-05-03 10:12 | General Progress Note ---
Subjective ROS Limited/Unobtainable: Yes Allergies: Coded Allergies: No Known Allergies (Unverified , 12/03/19) Objective Last 24 Hour Vital Signs Date Time Temp Pulse Resp B/P (MAP) Pulse Ox O2 Delivery O2 Flow Rate FiO2 05/03/20 08:00 98.7 94 18 131/87 (102) 97 05/03/20 04:00 99 18 124/79 (94) 97 05/02/20 21:00 Room Air 05/02/20 20:00 98.9 95 17 132/83 (99) 99 05/02/20 16:00 99.0 97 18 131/69 (89) 98 05/02/20 12:00 98.4 104 20 149/92 (111) 99 Intake and Output 05/02/20 05/03/20 19:00 07:00 Intake Total 700 ml 480 ml Output Total 1400 ml 300 ml Balance -700 ml 180 ml Intake Oral 700 ml 480 ml Output Drainage Total 1400 ml 300 ml Laboratory Tests 05/03/20 05:20: White Blood Count 4.7L, Red Blood Count 3.04L, Hemoglobin 9.3L, Hematocrit 29.2L , Mean Corpuscular Volume 96, Mean Corpuscular Hemoglobin 30.5, Mean Corpuscular Hemoglobin Concent 31.7L, Red Cell Distribution Width 15.8H, Platelet Count 316, Mean Platelet Volume 4.8L, Neutrophils (%) (Auto) 60.4, Lymphocytes (%) (Auto) 17.2L, Monocytes (%) (Auto) 11.1H, Eosinophils (%) (Auto) 4.1H, Basophils (%) (Auto) 7.3H, Sodium Level 142, Potassium Level 4.2, Chloride Level 108H, Carbon Dioxide Level 21, Anion Gap 13, Blood Urea Nitrogen 9, Creatinine 1.1, Estimat Glomerular Filtration Rate > 60, Glucose Level 91, Calcium Level 8.2L Height (Feet): 5 Height (Inches): 9.00 Weight (Pounds): 212 General Appearance: no apparent distress EENT: normal ENT inspection Neck: supple Respiratory/Chest: decreased breath sounds Abdomen: normal bowel sounds, non tender, soft Extremities: non-tender Assessment/Plan Status: stable Assessment/Plan: Anemia recent abd surg fu H&H neg stool ob abx pain control wound care fu surg recs>>> drain not ready to be removed needs out patient fu with her surgeon will Mason Perez MD May 03, 2020 10:12
--- NOTE | 2020-05-03 11:29 | Surgery Progress Note ---
Surgery Progress Note Subjective Symptoms: improved, tolerating diet, voiding well, passing flatus, pain decreased Objective Last 24 Hour Vital Signs Date Time Temp Pulse Resp B/P (MAP) Pulse Ox O2 Delivery O2 Flow Rate FiO2 05/03/20 08:00 98.7 94 18 131/87 (102) 97 05/03/20 04:00 99 18 124/79 (94) 97 05/02/20 21:00 Room Air 05/02/20 20:00 98.9 95 17 132/83 (99) 99 05/02/20 16:00 99.0 97 18 131/69 (89) 98 05/02/20 12:00 98.4 104 20 149/92 (111) 99 I&O Intake and Output 05/02/20 05/03/20 19:00 07:00 Intake Total 700 ml 480 ml Output Total 1400 ml 300 ml Balance -700 ml 180 ml Intake Oral 700 ml 480 ml Output Drainage Total 1400 ml 300 ml Dressing: dry Wound: clean Drains: hemovac Cardiovascular: RSR Respiratory: clear Abdomen: soft, non-tender, present bowel sounds, other, non-distended Extremities: edema, no tenderness, no cyanosis Laboratory Tests Test 05/03/20 05:20 White Blood Count 4.7 K/UL (4.8-10.8) L Red Blood Count 3.04 M/UL (4.20-5.40) L Hemoglobin 9.3 G/DL (12.0-16.0) L Hematocrit 29.2 % (37.0-47.0) L Mean Corpuscular Volume 96 FL (80-99) Mean Corpuscular Hemoglobin 30.5 PG (27.0-31.0) Mean Corpuscular Hemoglobin Concent 31.7 G/DL (32.0-36.0) L Red Cell Distribution Width 15.8 % (11.6-14.8) H Platelet Count 316 K/UL (150-450) Mean Platelet Volume 4.8 FL (6.5-10.1) L Neutrophils (%) (Auto) 60.4 % (45.0-75.0) Lymphocytes (%) (Auto) 17.2 % (20.0-45.0) L Monocytes (%) (Auto) 11.1 % (1.0-10.0) H Eosinophils (%) (Auto) 4.1 % (0.0-3.0) H Basophils (%) (Auto) 7.3 % (0.0-2.0) H Sodium Level 142 MMOL/L (136-145) Potassium Level 4.2 MMOL/L (3.5-5.1) Chloride Level 108 MMOL/L (98-107) H Carbon Dioxide Level 21 MMOL/L (21-32) Anion Gap 13 mmol/L (5-15) Blood Urea Nitrogen 9 mg/dL (7-18) Creatinine 1.1 MG/DL (0.55-1.30) Estimat Glomerular Filtration Rate > 60 mL/min (>60) Glucose Level 91 MG/DL (74-106) Calcium Level 8.2 MG/DL (8.5-10.1) L Plan Problems: (1) Post-op pain (2) Postoperative anemia (3) Abdominal pain Assessment & Plan: 39-year-old female recent abdominal plasty began to have fluid retention anasarca presented for evaluation complaining of abdominal pain. States she wants fluid removed. CT noted identified no fluid collections noted diffuse anasarca identified leukocytosis drain output minimal drain in place wound clean dry intact. No acute surgical intervention at this time. Wound does not look infected. Patient likely third spacing will need monitoring. Wound currently in tact but if continues to have worsening anasarca may have dehiscence. Drain evaluated and functional. No acute surgical invention at this time. Patient to follow-up with her surgeon once discharged. Will follow while in-house and monitor. Thank you for allowing me to participate patient's care. okay for diet pain control incentive spirometry activity as tolerated ?lasix am labs drain care cont current care d/c planning outpatient f/u with her surgeon to d/c drain once ready. currently output too much. drain volume diary to eval 24h output patient seen and examined at bedside. initially stated that she received too much fluids overnight and that her incision opened and is draining. states unable to put her undergarments/compression stockings given to her by plastic surgeon. once examined we clearly noted that there was no drainage and incision well healing without issue. patient then began to state that drain was not functioning properly as prior putting out >100cc/day but now is not. drain evaluated and functioning well but drainage has decreased. on exam noted to have right sided dependant edema as she has been laying on her right side. wound is clean and dry. still with mild anasarca and subcutaneous edema around the abdominoplasty. umbilical evaluated and noted to have sutures visible as well as some necrotic tissue from umbilical revision/reimplantation/creation. no signs of active infection noted at this time. I asked patient for the number to her surgeon in [place], [place] so we could discuss care plan and obtain records but currently waiting for this information from patient. from a surgical standpoint no acute general surgical intervention planned at this time. patient does need to follow up with her primary surgeon for drain removal. she does need to follow up with her pcp and primary surgeon to monitor edema and post op care. no abscess noted or drainable fluid collection. no n/v/f/c. labs okay. exam stable. d/c planning with outpatient follow up as above. currently refusing abx as she feels the 250cc fluid with abx is causing her edema discussed with team for oral abx coverage abx for uti patient express understanding and today would like iv abx if needed. wound without signs of infection drain output significant but serous only no pus no abscess no cellulitis abx for uti ABDOMEN: Liver: Unremarkable. No mass. Gallbladder and bile ducts: The gallbladder is contracted. No calcified stones. No ductal dilation. Pancreas: Unremarkable. No mass. No ductal dilation. Spleen: Unremarkable. No splenomegaly. Adrenals: Unremarkable. No mass. Kidneys and ureters: Nonobstructing right intrarenal calculus. Stomach and bowel: Unremarkable. No obstruction. No mucosal thickening. PELVIS: Appendix: No findings to suggest acute appendicitis. Bladder: Unremarkable. No mass. Reproductive: Indeterminate at irregular uterine masses. ABDOMEN and PELVIS: Intraperitoneal space: Unremarkable. No free air. No significant fluid collection. Bones/joints: No acute fracture. No dislocation. Soft tissues: Bilateral subcutaneous drainage catheters in a patient recently status post plastic surgery. Soft tissue gas throughout the subcutaneous fat abdomen and pelvis. Fluid attenuation and most prominent in the dependent portions near the posterior drainage catheters. No loculated fluid collections identified. Vasculature: Unremarkable. No abdominal aortic aneurysm. Lymph nodes: Unremarkable. No enlarged lymph nodes. IMPRESSION: Extensive soft tissue findings from recent surgical procedure with multiple superficial drainage catheters. Fluid and gas throughout the subcutaneous fat region abdomen and pelvis. No loculated fluid collections identified. Indeterminate irregular uterine masses. Anthony Koch 25, 2020 11:29
[2020-05-03 12:00] VITALS: BP 145/96
[2020-05-03] MEDS: Ertapenem 1gm in NS 55ml IV SCH (12:45)
[2020-05-03 16:00] VITALS: BP 129/76
[2020-05-03 20:00] VITALS: BP 124/81
[2020-05-03] MEDS: Enoxaparin 40mg Inj SUBQ SCH ×2 (21:00→21:40)
--- NOTE | 2020-05-03 21:32 | General Progress Note ---
Subjective Allergies: Coded Allergies: No Known Allergies (Unverified , 12/03/19) Objective Last 24 Hour Vital Signs Date Time Temp Pulse Resp B/P (MAP) Pulse Ox O2 Delivery O2 Flow Rate FiO2 05/03/20 16:00 100.0 103 18 129/76 (93) 98 05/03/20 12:00 100.0 104 18 145/96 (112) 97 05/03/20 09:00 Room Air 05/03/20 08:00 98.7 94 18 131/87 (102) 97 05/03/20 04:00 99 18 124/79 (94) 97 Intake and Output 05/02/20 05/03/20 19:00 07:00 Intake Total 700 ml 480 ml Output Total 1400 ml 300 ml Balance -700 ml 180 ml Intake Oral 700 ml 480 ml Output Drainage Total 1400 ml 300 ml Laboratory Tests 05/03/20 05:20: White Blood Count 4.7L, Red Blood Count 3.04L, Hemoglobin 9.3L, Hematocrit 29.2L , Mean Corpuscular Volume 96, Mean Corpuscular Hemoglobin 30.5, Mean Corpuscular Hemoglobin Concent 31.7L, Red Cell Distribution Width 15.8H, Platelet Count 316, Mean Platelet Volume 4.8L, Neutrophils (%) (Auto) 60.4, Lymphocytes (%) (Auto) 17.2L, Monocytes (%) (Auto) 11.1H, Eosinophils (%) (Auto) 4.1H, Basophils (%) (Auto) 7.3H, Sodium Level 142, Potassium Level 4.2, Chloride Level 108H, Carbon Dioxide Level 21, Anion Gap 13, Blood Urea Nitrogen 9, Creatinine 1.1, Estimat Glomerular Filtration Rate > 60, Glucose Level 91, Calcium Level 8.2L Height (Feet): 5 Height (Inches): 9.00 Weight (Pounds): 212 Assessment/Plan Status: stable Assessment/Plan: S, O: I am ok, denies pain or sob PHYSICAL EXAMINATION:HEAD AND NECK: Atraumatic and normocephalic.CHEST: Clear to auscultation. HEART: S1, S2. Regular rate and rhythm.ABDOMEN: Postoperative changes on the abdomen is noted. MUSCULOSKELETAL: No gross lateralized motor deficit. NEUROLOGY: Awake, alert, oriented x3. MEds: reviewed and reconciled ASSESSMENT AND PLAN: 1. Sepsis. 2. Cellulitis/wound infection in the abdominal area. secondary to Gram negative ESBL 3. Post tummy tuck and postsurgical changes noted. 4. Acute anemia. 5. GI and DVT prophylaxes. 6. UTI- Gram negative PLAN OF CARE: Refusal of IV abx notes from ID and surgery reviewed D/w the Surgeon, agreed for the need for outpatient followup with PCP to obtain appropriate Referrals Followup with PCP and Primary Surgeon as outpatient. Outpatient abx treatment, Rochelle Johnson MD May 03, 2020 21:32
[2020-05-04 04:00] VITALS: BP 124/79
[2020-05-04 08:00] VITALS: BP 116/74
--- NOTE | 2020-05-04 10:06 | General Progress Note ---
Subjective ROS Limited/Unobtainable: Yes Allergies: Coded Allergies: No Known Allergies (Unverified , 12/03/19) Objective Last 24 Hour Vital Signs Date Time Temp Pulse Resp B/P (MAP) Pulse Ox O2 Delivery O2 Flow Rate FiO2 05/04/20 04:00 98.3 99 19 124/79 (94) 97 05/03/20 21:00 Room Air 05/03/20 20:00 98.3 101 19 124/81 (95) 100 05/03/20 16:00 100.0 103 18 129/76 (93) 98 05/03/20 12:00 100.0 104 18 145/96 (112) 97 Intake and Output 05/03/20 05/04/20 19:00 07:00 Intake Total 480 ml Output Total 500 ml Balance -20 ml Intake Oral 480 ml Output Drainage Total 500 ml # Voids 2 # Bowel Movements 1 Height (Feet): 5 Height (Inches): 9.00 Weight (Pounds): 212 General Appearance: no apparent distress EENT: normal ENT inspection Neck: supple Cardiovascular: normal rate Respiratory/Chest: decreased breath sounds Abdomen: hypoactive bowel sounds Extremities: non-tender Assessment/Plan Status: stable Assessment/Plan: Anemia recent abd surg fu H&H neg stool ob abx pain control wound care fu surg recs>>> drain not ready to be removed needs out patient fu with her surgeon will Mason Perez MD May 04, 2020 10:06
[2020-05-04 12:00] VITALS: BP 123/87
[2020-05-04] MEDS: Ertapenem 1gm in NS 55ml IV SCH (12:08)
--- NOTE | 2020-05-04 14:02 | Surgery Progress Note ---
Surgery Progress Note Subjective Symptoms: improved, pain absent, tolerating diet, voiding well, passing flatus, BM Objective Last 24 Hour Vital Signs Date Time Temp Pulse Resp B/P (MAP) Pulse Ox O2 Delivery O2 Flow Rate FiO2 05/04/20 08:00 97.9 93 18 116/74 (88) 94 05/04/20 04:00 98.3 99 19 124/79 (94) 97 05/03/20 21:00 Room Air 05/03/20 20:00 98.3 101 19 124/81 (95) 100 05/03/20 16:00 100.0 103 18 129/76 (93) 98 I&O Intake and Output 05/03/20 05/04/20 19:00 07:00 Intake Total 480 ml Output Total 500 ml Balance -20 ml Intake Oral 480 ml Output Drainage Total 500 ml # Voids 2 # Bowel Movements 1 Dressing: dry Wound: clean Drains: hemovac Cardiovascular: RSR Respiratory: clear Abdomen: soft, flat, non-tender, present bowel sounds Extremities: edema, no tenderness, no cyanosis, pulses, other Plan Problems: (1) Post-op pain (2) Postoperative anemia (3) Abdominal pain Assessment & Plan: 39-year-old female recent abdominal plasty began to have fluid retention anasarca presented for evaluation complaining of abdominal pain. States she wants fluid removed. CT noted identified no fluid collections noted diffuse anasarca identified leukocytosis drain output minimal drain in place wound clean dry intact. No acute surgical intervention at this time. Wound does not look infected. Patient likely third spacing will need monitoring. Wound currently in tact but if continues to have worsening anasarca may have dehiscence. Drain evaluated and functional. No acute surgical invention at this time. Patient to follow-up with her surgeon once discharged. Will follow while in-house and monitor. Thank you for allowing me to participate patient's care. okay for diet pain control incentive spirometry activity as tolerated ?lasix am labs drain care cont current care d/c planning outpatient f/u with her surgeon to d/c drain once ready. currently output too much. drain volume diary to eval 24h output patient seen and examined at bedside. initially stated that she received too much fluids overnight and that her incision opened and is draining. states unable to put her undergarments/compression stockings given to her by plastic surgeon. once examined we clearly noted that there was no drainage and incision well healing without issue. patient then began to state that drain was not functioning properly as prior putting out >100cc/day but now is not. drain evaluated and functioning well but drainage has decreased. on exam noted to have right sided dependant edema as she has been laying on her right side. wound is clean and dry. still with mild anasarca and subcutaneous edema around the abdominoplasty. umbilical evaluated and noted to have sutures visible as well as some necrotic tissue from umbilical revision/reimplantation/creation. no signs of active infection noted at this time. I asked patient for the number to her surgeon in [place], [place] so we could discuss care plan and obtain records but currently waiting for this information from patient. from a surgical standpoint no acute general surgical intervention planned at this time. patient does need to follow up with her primary surgeon for drain removal. she does need to follow up with her pcp and primary surgeon to monitor edema and post op care. no abscess noted or drainable fluid collection. no n/v/f/c. labs okay. exam stable. d/c planning with outpatient follow up as above. currently refusing abx as she feels the 250cc fluid with abx is causing her edema discussed with team for oral abx coverage abx for uti patient express understanding and today would like iv abx if needed. wound without signs of infection drain output significant but serous only no pus no abscess no cellulitis abx for uti ABDOMEN: Liver: Unremarkable. No mass. Gallbladder and bile ducts: The gallbladder is contracted. No calcified stones. No ductal dilation. Pancreas: Unremarkable. No mass. No ductal dilation. Spleen: Unremarkable. No splenomegaly. Adrenals: Unremarkable. No mass. Kidneys and ureters: Nonobstructing right intrarenal calculus. Stomach and bowel: Unremarkable. No obstruction. No mucosal thickening. PELVIS: Appendix: No findings to suggest acute appendicitis. Bladder: Unremarkable. No mass. Reproductive: Indeterminate at irregular uterine masses. ABDOMEN and PELVIS: Intraperitoneal space: Unremarkable. No free air. No significant fluid collection. Bones/joints: No acute fracture. No dislocation. Soft tissues: Bilateral subcutaneous drainage catheters in a patient recently status post plastic surgery. Soft tissue gas throughout the subcutaneous fat abdomen and pelvis. Fluid attenuation and most prominent in the dependent portions near the posterior drainage catheters. No loculated fluid collections identified. Vasculature: Unremarkable. No abdominal aortic aneurysm. Lymph nodes: Unremarkable. No enlarged lymph nodes. IMPRESSION: Extensive soft tissue findings from recent surgical procedure with multiple superficial drainage catheters. Fluid and gas throughout the subcutaneous fat region abdomen and pelvis. No loculated fluid collections identified. Indeterminate irregular uterine masses. Anthony Koch May 04, 2020 14:02
--- NOTE | 2020-05-04 15:09 | Infectious Diseases Prog Note ---
Assessment/Plan Problems: (1) Status post abdominoplasty Assessment & Plan: with no sign of infection or wound dehiscence and CT scan is not showing any loculated fluid or abscess. fluid culture from the surgical drain has a growth of ESBL producing Klebsiella pneumoniae possibly colonizers, already on ertapenem to treat for UTI due to ESBL producing Klebsiella pneumoniae, advised patient to follow up with her own surgeon upon discharge as an outpatient in [place]. (2) UTI (urinary tract infection) Assessment & Plan: with ESBL producing Klebsiella pneumoniae, we treat with ertapenem treatment for 10-14 days (3) Postoperative anemia Assessment & Plan: suspect due to surgery status post blood transfusion monitor for any sign of bleeding Subjective Constitutional: Reports: no symptoms HEENT: Reports: no symptoms Respiratory: Reports: no symptoms Breasts: Reports: no symptoms Cardiovascular: Reports: no symptoms Gastrointestinal/Abdominal: Reports: no symptoms Genitourinary: Reports: no symptoms Neurologic: Reports: no symptoms Psychiatric: Reports: no symptoms Skin: Reports: no symptoms Endocrine: Reports: no symptoms Hematologic: Reports: no symptoms Musculoskeletal: Reports: no symptoms Allergies: Coded Allergies: No Known Allergies (Unverified , 12/03/19) she had less draining from the surgical site with minimal right upper thigh lymphedema, no fever or chills, no abdominal pain nausea or vomiting, surgical wound intact Objective Last 24 Hour Vital Signs Date Time Temp Pulse Resp B/P (MAP) Pulse Ox O2 Delivery O2 Flow Rate FiO2 05/04/20 12:00 98.2 102 18 123/87 (99) 97 05/04/20 08:00 97.9 93 18 116/74 (88) 94 05/04/20 04:00 98.3 99 19 124/79 (94) 97 05/03/20 21:00 Room Air 05/03/20 20:00 98.3 101 19 124/81 (95) 100 05/03/20 16:00 100.0 103 18 129/76 (93) 98 Height (Feet): 5 Height (Inches): 9.00 Weight (Pounds): 212 General Appearance: WD/WN, no acute distress HEENT: normocephalic, atraumatic, anicteric, mucous membranes moist, PERRL Respiratory/Chest: chest wall non-tender, lungs clear, normal breath sounds, no respiratory distress, no accessory muscle use Cardiovascular: normal peripheral pulses, normal rate, regular rhythm, no gallop/murmur, no JVD Abdomen: normal bowel sounds, soft, non tender, no organomegaly, non distended, no mass, no scars Genitourinary: normal external genitalia Extremities: no cyanosis, no clubbing Skin: no rash, no lesions, other - Lymphedema in both legs, lower abdomen surgical wound intact with surgical drain in place 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, alert, responsive Lymphatic: no neck adenopathy, no groin adenopathy Musculoskeletal: normal muscle bulk, no effusion Current Medications Medications (Trade) Dose Ordered Sig/Tiffani Route PRN Reason Start Time Stop Time Status Last Admin Dose Admin Acetaminophen (Tylenol) 650 mg Q4H PRN ORAL Temp >100.5 04/27/20 23:45 05/27/20 23:44 Dextrose (Dextrose 50%) 25 ml Q30M PRN IV Hypoglycemia 04/27/20 23:45 07/26/20 23:44 Dextrose (Dextrose 50%) 50 ml Q30M PRN IV Hypoglycemia 04/27/20 23:45 07/26/20 23:44 Enoxaparin Sodium (Lovenox) 40 mg Q24H SUBQ 04/30/20 21:00 07/29/20 20:59 05/02/20 20:47 Ertapenem 1 gm/ Sodium Chloride 55 ml @ 110 mls/hr Q24H IV 05/02/20 12:00 05/07/20 11:59 05/04/20 12:08 Lorazepam (Ativan 2mg/ml 1ml) 0.5 mg Q4H PRN IV For Anxiety 04/27/20 23:45 05/04/20 23:44 Morphine Sulfate (Morphine Sulfate) 2 mg TID PRN IVP Moderate Pain (Pain Scale 4-6) 04/27/20 23:45 05/04/20 23:44 Ondansetron HCl (Zofran) 4 mg Q6H PRN IVP Nausea & Vomiting 04/27/20 23:45 05/27/20 23:44 Pantoprazole (Protonix) 40 mg DAILY ORAL 04/28/20 09:00 05/28/20 08:59 05/04/20 09:19 Zolpidem Tartrate (Ambien) 5 mg HSPRN PRN ORAL Insomnia 04/27/20 23:45 05/04/20 23:44 05/02/20 20:45 Kerwin Fish M.D. May 04, 2020 15:09
--- NOTE | 2020-05-06 11:52 | Discharge Summary ---
Discharge Summary Discharge Summary _ DATE OF ADMISSION: 04/27/2020 DATE OF DISCHARGE: 05/04/2020 DISCHARGED BY: Dr Johnson REASON FOR ADMISSION: 39 years old female with past medical history of abdominoplasty, presented for evaluation of abdominal distention. Patient apparently had abdominoplasty in [place], [place] 14 days ago and had a drain placed , which she stated had decreased output since that. Patient reported increased abdominal distention. She completed antibiotic . She reported nausea , but no vomiting. No fever or chills. No diarrhea. Patient was able to pass gas. She denied wound dehiscence, purulent drainage or bleeding. Upon evaluation patient was tachycardic and had a low-grade fever . Urinalysis revealed evidence of UTI. Urine test was negative . Laboratory work-up revealed leukocytosis with WBC 13.3, anemia with hemoglobin 7.2. hematocrit 21 , platelet count 265 ; stable electrolytes and renal parameters. Stool for occult blood was negative. CT scan of the abdomen and pelvis revealed fluid and gas throughout the subcutaneous fat region of abdomen and pelvis. No loculated fluid collection. Irregular uterine masses. In emergency department patient received empiric antibiotic, analgesic and admitted for further management. CONSULTANTS: ID specialist Dr. Fish GI specialist Dr. Elam surgery Dr. Koch [facility]: Patient admitted to medical surgical floor and started on empiric antibiotic as per ID specialist recommendation. Patient was transfused with 2 units of packed red blood cells ; and prior to discharge hemoglobin 9.3, hematocrit 29.2 Stool for occult blood was negative. Urine culture revealed Klebsiella pneumonia ESBL. Blood cultures were negative. Rapid COVID-19 was negative. Culture of the fluid from drain also revealed Klebsiella pneumonia ESBL. Per ID specialist , no signs of infection or wound dehiscence . CT scan of the abdomen and pelvis ( as mentioned above), did not show any loculated fluid or abscess. Fluid culture from the surgical drain had growth of ESBL producing Klebsiella pneumonia , possibly colonizer Patient already was treated for UTI . Pain management was addressed . Incentive spirometry was encouraged . Patient started on diet as tolerated . Antiemetic were on board as needed . Drain care provided . Patient was recommended outpatient follow-up with her surgeon to discontinue drain , however still high output in drain, not ready for removal of drain at this time. Patient was recommended to keep a diary of the drain volumes to evaluate 24-hour output. Leukocytosis resolved. No fevers. Patient completed antibiotic while in the hospital. Patient clinically stabilized and was ready for discharge home . FINAL DIAGNOSES: Sepsis UTI with Klebsiella PNA ESBL Status post recent abdominoplasty Postoperative anemia, requiring blood transfusion DISCHARGE MEDICATIONS: See Medication Reconciliation list. DISCHARGE INSTRUCTIONS: Patient was discharged home. Follow-up with a primary care provider in 1 week. Follow-up with outpatient surgeon for removal of drain when ready. Patient was encouraged to keep a diary for evaluation of 24 hours of drain output. I have been assigned to dictate discharge summary for this account. I was not involved in the patient's management. Catina Rivera NP May 06, 2020 11:52
== END 2020-05-04 15:05 | disposition home or self-care (01) | DRG 720 ==
LOC: EMR 18:45 → 3E 22:40 → EDBEDREQ 04-28 15:22
PROC: 30233N1 Transfusion of Nonautologous Red Blood Cells into Peripheral Vein, Percutaneous Approach (ICD-10-PCS; principal; 2020-04-28)
DX: A41.9 Sepsis, unspecified organism (principal); G89.18 Other acute postprocedural pain; N39.0 Urinary tract infection, site not specified; D64.9 Anemia, unspecified; B96.1 Klebsiella pneumoniae [K. pneumoniae] as the cause of diseases classified elsewhere; Z16.12 Extended spectrum beta lactamase (ESBL) resistance; Z98.890 Other specified postprocedural states; E66.9 Obesity, unspecified; Z68.31 Body mass index [BMI] 31.0-31.9, adult
CPT/HCPCS: 36415; 74177; 80048; 80053; 80202; 81003; 81025; 82270; 83036; 83540; 83550; 83690; 84443; 85007; 85025; 85610; 85730; 86850; 86900; 86901; 86920; 87040; 87070; 87086; 87181; 87205; 96365; 99291; U0002